=== PATIENT | male | born 1955 | race Caucasian/White ===

== ENCOUNTER 2020-06-10 23:34 | Inpatient (IN) | payer BC ==
[~2020-06-10] VITALS: Ht 198.1 cm; Wt 110.6 kg
[2020-06-11] VITALS (13 sets, daily range): BP systolic 93–134; BP diastolic 56–91
[2020-06-11] MEDS: IV NORMAL SALINE 1000ML BAG 1,000 ML IV SCH ×3 (04:00→15:30)
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
[2020-06-11 04:48] LABS: BILIRUBIN,URINE SMALL (NEG); CLARITY,URINE TURBID; NITRITE,URINE NEGATIVE (NEG); PH,URINE 8.5 (<5.0-8.0); PROTEIN,URINE >=300 mg/dL (NEG-TRACE); UROBILINOGEN,URINE 0.2 mg/dL (0.2 mg/dL)
[2020-06-11 04:49] LABS: COLOR,URINE BROWN
[2020-06-11 04:52] LABS: BACTERIA,URINE MANY /HPF (0-FEW); WBC,URINE TNTC /HPF (0-4)
[2020-06-11] MEDS ORDERED: LEVO175T2 PO (04:57)
[2020-06-11 05:25] LABS: BASO % 0 % (0-3); EOS % 0 % (0-3); HEMATOCRIT 35.9 % (39.0-53.0); HEMOGLOBIN 11.8 g/dL (13.0-17.5); LYMPH # 1.3 x10^3/uL (1.0-4.8); LYMPH % 11 % (24-48); MEAN CORPUSCULAR HEMOGLOBIN 39 pg (25-35); MEAN CORPUSCULAR HGB CONC 33 g/dL (31-37); MEAN CORPUSCULAR VOLUME 117 fL (79-100); MONO # 0.4 x10^3/uL (0.0-1.1); MONO % 4 % (0-9); NEUT # 10.1 x10^3/uL (1.8-7.7); NEUT % 85 % (31-73); PLATELET COUNT 318 x10^3/uL (140-400); RED BLOOD COUNT 3.06 x10^6/uL (4.30-5.70); RED CELL DISTRIBUTION WIDTH 14.8 % (11.5-14.5); WHITE BLOOD COUNT 11.9 x10^3/uL (4.0-11.0)
[2020-06-11 05:39] LABS: ALBUMIN 1.8 g/dL (3.4-5.0); ALBUMIN/GLOBULIN RATIO 0.4 (1.0-1.7); CALCIUM 7.1 mg/dL (8.5-10.1); CREATININE 1.1 mg/dL (0.7-1.3); GFR 67.8; POTASSIUM 4.4 mmol/L (3.5-5.1); TOTAL BILIRUBIN 0.7 mg/dL (0.2-1.0)
[2020-06-11 06:03] LABS: PLT ESTIMATE ADEQUATE (ADEQUATE)
[2020-06-11 06:04] LABS: POLYCHROMASIA OCCASIONAL
[2020-06-11] MEDS ORDERED: VITS A & D/LANOLIN TOPICAL OINTMENT 42GM TUBE. TP PRN (10:15)
--- NOTE | 2020-06-11 10:41 | NUR ---
Wound Care: Patient seen per wound care consult. Patient is covid pending, results should be in tomorrow. Wound care viewed pictures in chart and spoke with RN. Recommendations at this time to apply A&D ointment BID to entire wounds. Wound care will order a sand bed today. RN agreeable to order ointment and POC. Will follow up with patient tomorrow 06/12/20.
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
[2020-06-11] MEDS: MEROPENEM 500 MG in IV NORMAL SALINE 50ML 50 ML IV SCH ×2 (12:05→17:56)
--- NOTE | 2020-06-11 12:23 | HP ---
ADMIT DATE: 06/11/2020 CHIEF COMPLAINT: Wounds, failure to thrive, maggots, penile wounds, penile maggots. HISTORY OF PRESENT ILLNESS: The patient is a pleasant elderly male who apparently lives with his sister, but I am not clear of the situation and he has a lot of wounds. He was brought in by ambulance. He has got maggots. We even found some maggots on his penis. I discussed the case with ER physician. We have admitted him. We are going to consider long-term care placement if necessary. PAST MEDICAL HISTORY: Probable early failure to thrive, hypothyroidism. ALLERGIES: None. FAMILY HISTORY: Hypothyroidism. SOCIAL HISTORY: I believe he is retired. He does not drink, smoke or take drugs. He apparently lives with his sister. MEDICATIONS: Reviewed, please refer to the MRAD. REVIEW OF SYSTEMS: Unable to obtain. The patient is too weak, frail and really does not talk much. PHYSICAL EXAMINATION: VITALS: Within normal limits and are stable. GENERAL: He is frail, weak and does not talk. HEENT: Normal cephalic atraumatic, external auditory canals are patent EYES: Extraocular muscles are intact, pupils are equally round and reactive to light and accommodation MUSCULOSKELETAL: Well developed, well nourished, good range of motion ENDOCRINE: No thyromegaly was palpated LYMPHATICS: No cervical chain or axillary nodes were noted HEMATOPOIETIC: No bruising NECK: Supple, no JVD, no thyromegaly was noted. LUNGS: Clear to auscultation in all lung ortiz without rhonchi or wheezing. HEART: RRR, S1, S2 present. Peripheral pulses intact, no obvious murmurs were noted. ABDOMEN: Soft, nontender. Positive bowel sounds no organomegaly, normal bowel sounds. EXTREMITIES: Without any cyanosis, clubbing, or edema. Pedal pulses intact, Homans sign is negative. NEUROLOGIC: He does not talk. He is not moving a whole lot right now. PSYCHIATRIC: He appears depressed. SKIN: He has numerous wounds. Please see the pictures. VASCULAR: Good capillary refill, neurovascular bundle appears to be intact. GENITOURINARY: He had some penile maggots, those have been removed. He also has some discharge from the penis. ASSESSMENT AND PLAN: Failure to thrive, wounds and maggots. The patient has been admitted. We are doing aggressive wound care. I consult social work coordinator for possible long-term care. We will try to get his home meds going. DVT prophylaxis. Full code. PROGNOSIS: Guarded, correction. LISA NG DO DR: VICKI/analisa JOB#: [id number] / [id number]
[2020-06-11] MEDS: MORPHINE SULFATE 2 MG/ML VIAL. IV PRN ×4 (12:38→22:09)
--- NOTE | 2020-06-11 12:52 | CONS ---
DATE OF CONSULTATION: 06/11/2020 REFERRING PHYSICIAN: Dr. Rollins. REASON FOR CONSULTATION: Sepsis, Wounds, maggots, penile wounds, penile maggots. HISTORY OF PRESENT ILLNESS: The patient is a pleasant elderly male who apparently lives with his sister, but I am not clear of the situation and he has a lot of wounds. He was brought in by ambulance. He has got maggots. We even found some maggots on his penis. I discussed the case with ER physician. We have admitted him. We are going to consider long-term care placement if necessary. HISTORY OF PRESENT ILLNESS: A 64-year-old male, not a good historian currently admitted to ICU from [facility] where he was first brought in by EMS per chart review for altered mental status,failure to thrive. The patient lives with his sister. EMS found him sitting in the chair, with the fecal and urinary incontinence. The patient's temperature here at [facility] was 94*F with blood pressure of 96/74, leukocytosis. Creatinine of 1.1, albumin of 1.6. UA showed large leukocyte esterase, moderate blood, wbc's too numerous to count. Blood culture from [facility] reported positive for gram-negative bacteremia. ID and JOHANN is pending at this time. The patient was found to have multiple wounds. Wound pictures noted with maggots including penile wound with maggots. shared services and outsourcing manager has been contacted for further evaluation and treatment. The patient is currently on no antibiotics. ID consult has been requested for antibiotic management. PAST MEDICAL HISTORY: Hypothyroidism. Failure to thrive. Other medical condition, unknown. REVIEW OF SYSTEMS: Limited, but the patient denies any fevers, chills, nausea, vomiting, diarrhea, sore throat, difficulty swallowing, or symptoms. Unable to tell me how long he has had wounds. Denied any urinary symptoms prior to admission. Denied being on any antibiotics, but information is limited as the patient is not able to answer all the questions, somewhat hard of hearing. CURRENT MEDICATION: Morphine, vitamin A and D ointment, sodium chloride. ALLERGIES: No known drug allergies. SOCIAL HISTORY: Denies smoking, ETOH or illicit drug use. Lives with his sister. Has been unemployed for almost 19 years. PHYSICAL EXAMINATION: VITAL SIGNS: Temperature 94, pulse 82, respiratory rate 23, blood pressure 113/76, oxygen saturation 97% on room air. GENERAL: Alert, awake male, pleasant, in no acute distress. Able to answer some questions, asking for water. HEENT: Normocephalic, atraumatic, anicteric. No thrush. Oral mucosa moist. No oropharyngeal exudate. NECK: Supple, no JVD. LUNGS: Decreased breath sounds at the bases, otherwise no wheezing. No accessory muscle use. HEART: S1, S2. ABDOMEN: Soft, nontender, nondistended. EXTREMITIES: No edema or cyanosis. DERMATOLOGIC: No generalized rash. Multiple wounds. Wound pictures and descriptions noted with maggots noted including both lower extremities, buttocks, penile area. GENITOURINARY: Díaz in place. CENTRAL NERVOUS SYSTEM: Alert and awake. PSYCHIATRIC: Calm and cooperative. LABORATORY DATA: WBC 11.9, hemoglobin 11.8, hematocrit 35.9, platelets 318. Sodium 137, potassium 4.4, chloride 103, bicarbonate 14, BUN 43, creatinine 1.1, glucose 95, calcium 7.1, AST 23, ALT 10, alkaline phosphatase 153, total protein 6.0, albumin 1.8. UA: Large leukocyte esterase, wbc's too numerous to count. MICRO: Blood culture, gram-negative whit from [facility]. IMAGING: None here. IMPRESSION: 1. Severe sepsis from gram-negative bacteremia. 2. Gram-negative bacteremia. 3. Urinary tract infection. 4. Multiple wounds with maggots. 5. Penile ulcer with maggots 6. Hypothyroidism. 7. Anemia. 8. Severe protein-calorie malnutrition. RECOMMENDATIONS: 1. Start meropenem. 2. Repeat blood cultures in a.m. 3. Wound team has been consulted 4. Follow up gram-negative whit, ID and JOHANN from [facility]. 5. Continue wound care as directed. 6. Continue supportive care. 7. shared services and outsourcing manager has been contacted Discussed with RN Thank you for consulting Infectious Disease to participate in this patient's care. If you have any questions, do not hesitate to contact me. CCT time spent 40 minutes. REYNALDO BOLIVAR MD DR: ADRIAN/analisa JOB#: [id number] / [id number] TANNER
[2020-06-11] MEDS: oxyCODONE/APAP 7.5/325 1 TAB TABLET PO PRN (17:54)
[2020-06-12] MEDS: MEROPENEM 500 MG in IV NORMAL SALINE 50ML 50 ML IV SCH ×5 (00:01→23:10)
[2020-06-12] MEDS: IV NORMAL SALINE 1000ML BAG 1,000 ML IV SCH ×6 (00:01→23:10)
--- NOTE | 2020-06-12 02:24 | NUR ---
Patient more alert and orientated x3, requesting a snack. When talking to patient about his living situation, patient stated "i live with my sister", asked patient how he ambulates, patient stated "i don't walk, i just sit there" When asking patient how he uses the bathroom, patient states "i just go", nurse asked patient if anyone ever helps him get cleaned up, he stated "no, my sister doesn't help me with that". patient ate two ice creams, and drank one soda. Call light in reach, Will continue to monitor patient.
[2020-06-12] MEDS: MORPHINE SULFATE 2 MG/ML VIAL. IV PRN ×8 (02:48→23:10)
[2020-06-12 03:19] VITALS: BP 113/86
[2020-06-12 04:40] LABS: BASO % 0 % (0-3); EOS % 0 % (0-3); HEMATOCRIT 33.5 % (39.0-53.0); HEMOGLOBIN 11.2 g/dL (13.0-17.5); LYMPH # 1.6 x10^3/uL (1.0-4.8); LYMPH % 18 % (24-48); MEAN CORPUSCULAR HEMOGLOBIN 40 pg (25-35); MEAN CORPUSCULAR HGB CONC 34 g/dL (31-37); MEAN CORPUSCULAR VOLUME 119 fL (79-100); MONO # 0.4 x10^3/uL (0.0-1.1); MONO % 4 % (0-9); NEUT % 78 % (31-73); PLATELET COUNT 254 x10^3/uL (140-400); RED BLOOD COUNT 2.81 x10^6/uL (4.30-5.70); RED CELL DISTRIBUTION WIDTH 15.1 % (11.5-14.5)
[2020-06-12 05:39] LABS: CHOLESTEROL/HDL RATIO 2.7
[2020-06-12 07:00] VITALS: BP 138/90
--- NOTE | 2020-06-12 08:14 | PDOC ---
Infectious Disease Note Subjective: Subjective Patient transferred out of ICU Currently eating breakfast States feels better Vital Signs: Vital Signs Vital Signs Date Time Temp Pulse Resp B/P (MAP) Pulse Ox O2 Delivery O2 Flow Rate FiO2 06/12/20 05:37 20 99 Room Air 06/12/20 03:19 97.8 68 113/86 (95) 97.8 Physical Exam: PHYSICAL EXAM GENERAL: Alert, awake male, pleasant, in no acute distress. Able to answer some questions, asking for water. HEENT: Normocephalic, atraumatic, anicteric. No thrush. Oral mucosa moist. No oropharyngeal exudate. NECK: Supple, no JVD. LUNGS: Decreased breath sounds at the bases, otherwise no wheezing. No accessory muscle use. HEART: S1, S2. ABDOMEN: Soft, nontender, nondistended. EXTREMITIES: Positive for edema, no cyanosis. Yeast present DERMATOLOGIC: No generalized rash. Hyperpigmentation both lower extremity multiple wounds. Wound pictures and descriptions noted with maggots noted including both lower extremities, buttocks, penile area. GENITOURINARY: Díaz in place. CENTRAL NERVOUS SYSTEM: Alert and awake. PSYCHIATRIC: Calm and cooperative. Medications: Inpatient Meds: Current Medications Medications (Trade) Dose Ordered Sig/Rachel Start Time Stop Time Status Last Admin Dose Admin Meropenem 500 mg/ Sodium Chloride 50 ml @ 100 mls/hr Q6HRS 06/11/20 12:30 06/12/20 06:06 100 MLS/HR Morphine Sulfate (Morphine Sulfate) 2 mg PRN Q2HR PRN 06/11/20 17:15 06/12/20 05:07 2 MG Oxycodone/ Acetaminophen (Percocet 7.5/ 325) 1 tab PRN Q6HRS PRN 06/11/20 17:15 06/11/20 17:54 1 TAB Sodium Chloride 1,000 ml @ 200 mls/hr Q5H 06/11/20 04:15 06/12/20 05:43 200 MLS/HR Vitamin A/Vitamin D (Vitamin A & D Ointment) 2 alec PRN BID PRN 06/11/20 10:15 06/11/20 16:17 2 ALEC Labs: Lab Laboratory Tests Test 06/12/20 03:20 White Blood Count 9.0 x10^3/uL (4.0-11.0) Red Blood Count 2.81 x10^6/uL (4.30-5.70) Hemoglobin 11.2 g/dL (13.0-17.5) Hematocrit 33.5 % (39.0-53.0) Mean Corpuscular Volume 119 fL (79-100) Mean Corpuscular Hemoglobin 40 pg (25-35) Mean Corpuscular Hemoglobin Concent 34 g/dL (31-37) Red Cell Distribution Width 15.1 % (11.5-14.5) Platelet Count 254 x10^3/uL (140-400) Neutrophils (%) (Auto) 78 % (31-73) Lymphocytes (%) (Auto) 18 % (24-48) Monocytes (%) (Auto) 4 % (0-9) Eosinophils (%) (Auto) 0 % (0-3) Basophils (%) (Auto) 0 % (0-3) Neutrophils # (Auto) 7.0 x10^3/uL (1.8-7.7) Lymphocytes # (Auto) 1.6 x10^3/uL (1.0-4.8) Monocytes # (Auto) 0.4 x10^3/uL (0.0-1.1) Eosinophils # (Auto) 0.0 x10^3/uL (0.0-0.7) Basophils # (Auto) 0.0 x10^3/uL (0.0-0.2) Magnesium Level 2.0 mg/dL (1.8-2.4) WE-Vub-V-Type Natriuretic Peptide 476 pg/mL (0-124) Triglycerides Level 155 mg/dL (0-150) Cholesterol Level 86 mg/dL (0-200) LDL Cholesterol, Calculated 23 mg/dL (0-100) VLDL Cholesterol, Calculated 31 mg/dL (0-40) Non-HDL Cholesterol Calculated 54 mg/dL (0-129) HDL Cholesterol 32 mg/dL (40-60) Cholesterol/HDL Ratio 2.7 Micro Gram-negative bacteremia ID JOHANN pending Objective: Assessment: 1. Severe sepsis from gram-negative bacteremia. Improving 2. Gram-negative bacteremia. 3. Urinary tract infection. 4. Multiple wounds with maggots. 5. Penile ulcer with maggots 6. Hypothyroidism. 7. Anemia. 8. Severe protein-calorie malnutrition. 9. Yeast in groin Plan: Plan of Care Continue Merrem .Micafungin Follow-up repeat blood cultures here Wound care as directed Follow up gram-negative whit, ID and JOHANN from [facility]. Continue supportive care. Discussed with nursing staff REYNALDO BOLIVAR MD Jun 12, 2020 08:13
--- NOTE | 2020-06-12 08:33 | PDOC ---
[employer] PROGRESS NOTE Date of Service DOS: DATE: 06/12/20 TIME: 08:25 Chief Complaint Chief Complaint Severe sepsis from gram-negative bacteremia Urinary tract infection Multiple wounds with maggots Penile ulcer with maggots Hypothyroidism Anemia PAD Severe protein-calorie malnutrition History of Present Illness History of Present Illness 06/12/2020 Patient seen and examined Laying in bed, NAD Purulent discharge from penile ulcer Discussed with RN Chart reviewed Vitals/I&O Vitals/I&O: Vital Signs Date Time Temp Pulse Resp B/P (MAP) Pulse Ox O2 Delivery O2 Flow Rate FiO2 06/12/20 08:16 99 Room Air 06/12/20 05:37 20 06/12/20 03:19 97.8 68 113/86 (95) 97.8 I & O 06/11/20 06/11/20 06/12/20 15:00 23:00 07:00 Intake Total 0 ml Output Total 85 ml 100 ml 700 ml Balance -85 ml -100 ml -700 ml Physical Exam Physical Exam: GENERAL: Alert, awake male, pleasant, in no acute distress. Able to answer some questions. HEENT: Normocephalic, atraumatic, anicteric. No thrush. Oral mucosa moist. No oropharyngeal exudate. NECK: Supple, no JVD. LUNGS: Decreased breath sounds at the bases, otherwise no wheezing. No accessory muscle use. HEART: S1, S2. ABDOMEN: Soft, nontender, nondistended. EXTREMITIES: No edema or cyanosis. DERMATOLOGIC: No generalized rash. Multiple wounds. Wound pictures and descriptions noted with maggots noted including both lower extremities, buttocks, penile area. GENITOURINARY: Díaz in place. CENTRAL NERVOUS SYSTEM: Alert and awake. PSYCHIATRIC: Calm and cooperative. General: Alert, Cooperative, No acute distress Heart: Regular rate, Normal S1, Normal S2 Lungs: Other (Decreased breath sounds at bases) Abdomen: Soft, No tenderness Extremities: No clubbing Skin: Other (LE PAD and chronic venous insufficiency, edema B/L) Labs Labs: Laboratory Tests Test 06/12/20 03:20 White Blood Count 9.0 x10^3/uL (4.0-11.0) Red Blood Count 2.81 x10^6/uL (4.30-5.70) Hemoglobin 11.2 g/dL (13.0-17.5) Hematocrit 33.5 % (39.0-53.0) Mean Corpuscular Volume 119 fL (79-100) Mean Corpuscular Hemoglobin 40 pg (25-35) Mean Corpuscular Hemoglobin Concent 34 g/dL (31-37) Red Cell Distribution Width 15.1 % (11.5-14.5) Platelet Count 254 x10^3/uL (140-400) Neutrophils (%) (Auto) 78 % (31-73) Lymphocytes (%) (Auto) 18 % (24-48) Monocytes (%) (Auto) 4 % (0-9) Eosinophils (%) (Auto) 0 % (0-3) Basophils (%) (Auto) 0 % (0-3) Neutrophils # (Auto) 7.0 x10^3/uL (1.8-7.7) Lymphocytes # (Auto) 1.6 x10^3/uL (1.0-4.8) Monocytes # (Auto) 0.4 x10^3/uL (0.0-1.1) Eosinophils # (Auto) 0.0 x10^3/uL (0.0-0.7) Basophils # (Auto) 0.0 x10^3/uL (0.0-0.2) Magnesium Level 2.0 mg/dL (1.8-2.4) OJ-Sfp-R-Type Natriuretic Peptide 476 pg/mL (0-124) Triglycerides Level 155 mg/dL (0-150) Cholesterol Level 86 mg/dL (0-200) LDL Cholesterol, Calculated 23 mg/dL (0-100) VLDL Cholesterol, Calculated 31 mg/dL (0-40) Non-HDL Cholesterol Calculated 54 mg/dL (0-129) HDL Cholesterol 32 mg/dL (40-60) Cholesterol/HDL Ratio 2.7 Review of Systems Review of Systems: Pertinent as per HPI, otherwise 10 point review of systems is negative. Assessment and Plan Assessmemt and Plan ASSESSMENT Severe sepsis from gram-negative bacteremia Urinary tract infection Multiple wounds with maggots Penile ulcer with maggots Hypothyroidism Anemia PAD Severe protein-calorie malnutrition PLAN Continue current care Cardiac monitoring Wound care Antibiotics per infectious disease DVT prophylaxis Full code Discharge disposition pending Comment Review of Relevant I have reviewed the following items daisy (where applicable) has been applied. Medications: Current Medications Medications (Trade) Dose Ordered Sig/Rachel Route PRN Reason Start Time Stop Time Status Last Admin Dose Admin Vitamin A/Vitamin D (Vitamin A & D Ointment) 2 alec PRN BID PRN TP SKIN PROTECTION 06/11/20 10:15 06/11/20 16:17 Meropenem 500 mg/ Sodium Chloride 50 ml @ 100 mls/hr Q6HRS IV 06/11/20 12:30 06/12/20 06:06 Morphine Sulfate (Morphine Sulfate) 2 mg PRN Q2HR PRN IV PAIN 06/11/20 17:15 06/12/20 08:16 Oxycodone/ Acetaminophen (Percocet 7.5/ 325) 1 tab PRN Q6HRS PRN PO PAIN 06/11/20 17:15 06/11/20 17:54 Justicifation of Admission Dx: Justifications for Admission: Justification of Admission Dx: N/A LISA NG III DO Jun 12, 2020 08:33
[2020-06-12] MEDS: MICAFUNGIN 100 MG in IV DEXTROSE 5% 100ML 100 ML IV SCH (09:24)
--- NOTE | 2020-06-12 10:53 | NUR ---
SW following. Discussed with RN, pt transferred from ICU, wound care not wanting to see pt until his COVID-19 result comes back from [facility] - apparently pt was tested over there for suspected COVID-19. SW will continue to follow.
[2020-06-12 11:00] VITALS: BP 129/90
--- NOTE | 2020-06-12 11:01 | NUR ---
This nurse called [facility]'s medical records to verify patient covid 19 test status; Stephani reported that patient's covid test was cancelled and their is no indication that a test was complete. Primary contacted for further orders/recommendations.
[2020-06-12 15:00] VITALS: BP 130/80
--- NOTE | 2020-06-12 15:53 | PDOC2 ---
Chief Complaint: Chief Complaint: Multiple pressure wounds to bilateral lower extremities, back, left heel, and left hip Vital Signs: Vital Signs: Vital Signs Date Time Temp Pulse Resp B/P (MAP) Pulse Ox O2 Delivery O2 Flow Rate FiO2 06/11/20 07:34 95 24 110/91 (97) 96 Room Air 06/11/20 08:00 98.3 98.3 Vital Signs Date Time Temp Pulse Resp B/P (MAP) Pulse Ox O2 Delivery O2 Flow Rate FiO2 06/12/20 15:00 97.6 69 16 130/80 (97) 90 Room Air 97.6 Allergies: Allergies: Allergies Coded Allergies Type Severity Reaction Last Updated Verified No Known Drug Allergies 06/11/20 No Medications: Home Meds Reported Medications Levothyroxine Sodium (SYNTHROID) 175 Mcg Tablet, 1 TAB PO DAILY for hypothyroid, #30 TAB 5 Refills 06/11/20 PCP: PCP: Dr. Rollins Pain: Pain Location: Other (Patient complains of general pain with change of positio ns.) Date of Onset Patient presented to [facility] for admission on 06/11. Patient presented with multiple pressure wounds to his back bilateral lower extremities and left hip. Patient states that he lost his dog who was his mechanical handyman approximately 3 weeks ago and refused to get off the couch following his . Patient states that prior to this point he was ambulating, however required help from his sister. Chart review reveals patient brought to the emergency room covered in feces and had maggots in his wounds along with his penis. Patient sister who is his primary supervisor mill reported patient was doing fine until the day before admission. Adult Protective Services has been notified. PMH Hypothyroidism. Failure to thrive. Peripheral artery disease. Other medical conditions, unknown. [facility] Patient lives with his sister prior to admission. Patient denies tobacco use, illicit drug use or alcohol use. General: No: Chills, Fatigue, Appetite Respiratory: No: Cough, Orthopnea, Shortness of breath Cardiovascular: No Chest Pain, No Orthopnea, No Edema Gastrointestinal: No Nausea, No Vomiting, No Diarrhea, No Constipation Genitourinary: YES Other (Patient with Díaz catheter. Patient reports pain in penis.) Skin: Yes Dry Skin, Yes Hair Changes, Yes Other (Patient states that he began to notice discoloration of his lower extremities around 1992. Patient sister reports that he has been diagnosed with peripheral artery disease.) Neurological: No Behavorial Changes, No Confusion, No Dizziness, No Headaches Psychological: YES: Depression; No: Anxiety, Suicidal ideation Physical Exam Patient awake and alert 64-year-old male in no apparent distress. Vital signs are stable. Patient is afebrile at this time. Patient pleasant in conversation, appears to have some mental delays. Tardive dyskinesias present. Respirations are even and unlabored. Patient is on room air not requiring montague pplemental oxygen. Abdomen is soft, nondistended and nontender to palpation. Patient with lipodermatosclerosis to bilateral lower extremities. Toenails are thick and yellow and growing into plantar foot as they are overgrown. The left heel presents with a 7.8 x 7.2 x 0.2 cm blood filled bulla. Surrounding tissues without erythema or edema. The right hip presents with a 24 x 12.7 cm open ulceration. Wound bed is 100% slough/eschar with some granulated islands throughout. Surrounding tissue is maroon to purple, however is blanchable at this time. The right lower back presents with a 5.8 x 9.8 x 0.2 cm open ulceration. Wound bed is 90% slough with granulated islands throughout. The right buttock presents with a 4.4 x 7.2 x 0.1 cm open ulceration. Wound bed is 100% slough. Right back presents with a 7 x 4.4 x 0.1 cm open ulceration.Wound bed is 90% slough with 10% granulated islands throughout. The right second toe presents with a fluid-filled blister which measures 0.9 x 0.5 cm. There is no surrounding erythema or edema. The left thigh presents with a 8 x 6 x 0.1 cm open ulceration. Wound bed is 10% slough, 90% pink smooth tissue. The right posterior thigh presents with a 19 x 11.5 x 0.1 cm open ulceration. Wound bed is 90% pink smooth with 10% slough. The left hip presents with a 2.2 x 1.6 x 0.1 cm open ulceration. Wound bed is 50% slough, 50% granulation and islands throughout. The lower mid back presents with a 10 x 2.4 x 0.1 cm open ulceration. Wound bed is 90% granulation, 10% slough the left lower leg presents with a 2 x 1 x 0.2 cm open ulceration. Wound bed is 100% granulation. The entire lower back, bilateral buttocks, bilateral thighs and left side of the patient present with a maroon to purple discoloration which is blanchable at this time A/P 1) failure to thrive 2) sepsis -Infectious disease following for antibiotic therapy 3) DTI to left foot 4) stage II pressure ulcer to the right second toe 5) stage III pressure ulcers to the right hip right lower back right back left thigh right posterior thigh left hip lower mid back and left lower leg 6) unstageable pressure ulcers to the right hip and right buttock 7) Peripheral artery disease without open ulcerations at this time Due to the nature of the periwound around the wounds requiring debridement, the right hip and right buttock, we will initiate A and D ointment and plan to debride at bedside on 06/14. Pt will require premedication prior to debridement. Patient is on a low air loss mattress. Nursing staff on every 2 hour turning schedule. Dietary is consulting to ensure patient with adequate protein intake for optimal wound healing. Consult podiatry for toenail trimming. Adult protective services has been notified by [facility] JACQUE. ANAI HERNANDEZ APRN Jun 12, 2020 15:53
[2020-06-12] MEDS: DAPTOmycin (GENERIC) IVPB 500 MG in IV NORMAL SALINE 50ML 50 ML IV SCH (16:12)
--- NOTE | 2020-06-12 16:40 | NUR ---
Wound Care Wound care consult for multiple wounds to back, buttocks, hips, legs and feet. Pt skin is excoriated and has multiple pressure ulcers stage II and III. Pt has unstageable ulcers to right hip and right lower back. Pt also has large blood filled blister to left heel. SONIDO Mccann will plan bedside debridement on Wednesday with the hopes the periwound skin will heal enough to cover wounds with dressings. Cleansed areas and pictured and measured. Applied A&D ointment to all wounds. Recommend pt to turn every 2 hours. Pt on clinitron sand bed. WC will continue to follow.
[2020-06-12 19:00] VITALS: BP 130/93
[2020-06-12] MEDS: LACTOBACILLUS RHAMNOSUS GG 1 CAPSULE. PO SCH (21:09)
[2020-06-12 22:55] VITALS: BP 131/97
[2020-06-12] MEDS: oxyCODONE/APAP 7.5/325 1 TAB TABLET PO PRN (23:04)
[2020-06-13] MEDS: MORPHINE SULFATE 2 MG/ML VIAL. IV PRN ×5 (02:34→20:39)
--- NOTE | 2020-06-13 03:02 | NUR ---
No urine noted from bearden catheter during the noc. Continue to see purulent drainage from penis. Pt with slight touch would complain of pain. Bladder scanned pt and noted 600-999ml in bladder. After giving pain medication placed a new catheter. 16f bearden pt tolerated with complaints of discomfort. Immediately noted brown purulent drainage in tubing and catheter bag started to fill with brownish purulent urine noted. Pt states starting to feel better. Will continue to monitor.
[2020-06-13 03:06] VITALS: BP 144/74
[2020-06-13] MEDS: IV NORMAL SALINE 1000ML BAG 1,000 ML IV SCH ×4 (03:36→19:38)
[2020-06-13] MEDS: MEROPENEM 500 MG in IV NORMAL SALINE 50ML 50 ML IV SCH ×4 (05:30→23:41)
[2020-06-13 07:00] VITALS: BP 108/69
[2020-06-13 07:50] LABS: BASO % 0 % (0-3); EOS % 0 % (0-3); HEMATOCRIT 33.7 % (39.0-53.0); HEMOGLOBIN 11.3 g/dL (13.0-17.5); LYMPH # 1.3 x10^3/uL (1.0-4.8); LYMPH % 15 % (24-48); MEAN CORPUSCULAR HEMOGLOBIN 39 pg (25-35); MEAN CORPUSCULAR HGB CONC 34 g/dL (31-37); MEAN CORPUSCULAR VOLUME 117 fL (79-100); MONO # 0.2 x10^3/uL (0.0-1.1); MONO % 2 % (0-9); NEUT # 7.5 x10^3/uL (1.8-7.7); NEUT % 83 % (31-73); PLATELET COUNT 208 x10^3/uL (140-400); RED BLOOD COUNT 2.87 x10^6/uL (4.30-5.70)
--- NOTE | 2020-06-13 08:07 | PDOC ---
Infectious Disease Note Subjective: Subjective Currently eating breakfast States feels better Vital Signs: Vital Signs Vital Signs Date Time Temp Pulse Resp B/P (MAP) Pulse Ox O2 Delivery O2 Flow Rate FiO2 06/13/20 03:06 98.0 83 22 144/74 (97) 97 Room Air 98.0 Physical Exam: PHYSICAL EXAM GENERAL: Alert, awake male, pleasant, in no acute distress. Able to answer some questions, asking for water. HEENT: Normocephalic, atraumatic, anicteric. No thrush. Oral mucosa moist. No oropharyngeal exudate. NECK: Supple, no JVD. LUNGS: Decreased breath sounds at the bases, otherwise no wheezing. No accessory muscle use. HEART: S1, S2. ABDOMEN: Soft, nontender, nondistended. EXTREMITIES: Positive for edema, no cyanosis. Yeast present DERMATOLOGIC: No generalized rash. Hyperpigmentation both lower extremity multiple wounds. Wound pictures and descriptions noted with maggots noted including both lower extremities and back,, buttocks, penile area. GENITOURINARY: Díaz in place.penile abrasion noted CENTRAL NERVOUS SYSTEM: Alert and awake. PSYCHIATRIC: Calm and cooperative. Medications: Inpatient Meds: Current Medications Medications (Trade) Dose Ordered Sig/Rachel Start Time Stop Time Status Last Admin Dose Admin Daptomycin 500 mg/ Sodium Chloride 50 ml @ 100 mls/hr Q24H 06/12/20 17:00 06/12/20 16:12 100 MLS/HR Lactobacillus Rhamnosus (Culturelle) 1 cap BID 06/12/20 21:00 06/12/20 21:09 1 CAP Meropenem 500 mg/ Sodium Chloride 50 ml @ 100 mls/hr Q6HRS 06/11/20 12:30 06/13/20 05:30 100 MLS/HR Micafungin Sodium 100 mg/Dextrose 100 ml @ 100 mls/hr Q24H 06/12/20 10:00 06/12/20 09:24 100 MLS/HR Morphine Sulfate (Morphine Sulfate) 2 mg PRN Q2HR PRN 06/11/20 17:15 06/13/20 02:34 2 MG Oxycodone/ Acetaminophen (Percocet 7.5/ 325) 1 tab PRN Q6HRS PRN 06/11/20 17:15 06/12/20 23:04 1 TAB Sodium Chloride 1,000 ml @ 200 mls/hr Q5H 06/11/20 04:15 06/12/20 23:10 200 MLS/HR Vitamin A/Vitamin D (Vitamin A & D Ointment) 2 alec PRN BID PRN 06/11/20 10:15 06/11/20 16:17 2 ALEC Labs: Lab Laboratory Tests Test 06/12/20 11:25 06/13/20 06:25 SARS-CoV-2 Antigen (Rapid) Negative (NEGATIVE) White Blood Count 9.0 x10^3/uL (4.0-11.0) Red Blood Count 2.87 x10^6/uL (4.30-5.70) Hemoglobin 11.3 g/dL (13.0-17.5) Hematocrit 33.7 % (39.0-53.0) Mean Corpuscular Volume 117 fL (79-100) Mean Corpuscular Hemoglobin 39 pg (25-35) Mean Corpuscular Hemoglobin Concent 34 g/dL (31-37) Red Cell Distribution Width 14.0 % (11.5-14.5) Platelet Count 208 x10^3/uL (140-400) Neutrophils (%) (Auto) 83 % (31-73) Lymphocytes (%) (Auto) 15 % (24-48) Monocytes (%) (Auto) 2 % (0-9) Eosinophils (%) (Auto) 0 % (0-3) Basophils (%) (Auto) 0 % (0-3) Neutrophils # (Auto) 7.5 x10^3/uL (1.8-7.7) Lymphocytes # (Auto) 1.3 x10^3/uL (1.0-4.8) Monocytes # (Auto) 0.2 x10^3/uL (0.0-1.1) Eosinophils # (Auto) 0.0 x10^3/uL (0.0-0.7) Basophils # (Auto) 0.0 x10^3/uL (0.0-0.2) Micro Gram-negative bacteremia ID JOHANN pending Objective: Assessment: 1. Severe sepsis bacteremia improving 2. Polymicrobial infection, ecoli, enterococcus raffinosus,diphtheroids and staph hominis POA at osh, here repeat bc neg 3. Urinary tract infection. 4. Multiple wounds with maggots. 5. Penile ulcer with maggots 6. Hypothyroidism. 7. Anemia. 8. Severe protein-calorie malnutrition. 9. Yeast in groin Plan: Plan of Care Continue Merrem and daptomycin Continue.Micafungin Follow-up repeat blood cultures here Wound care as directed Follow up suscep for enterococcus raffinosus, Avoid picc line today, Continue supportive care. Discussed with nursing staff REYNALDO BOLIVAR MD Jun 13, 2020 08:07
[2020-06-13 08:10] LABS: CALCIUM 7.2 mg/dL (8.5-10.1); CREATININE 0.8 mg/dL (0.7-1.3); POTASSIUM 3.7 mmol/L (3.5-5.1)
[2020-06-13] MEDS: oxyCODONE/APAP 7.5/325 1 TAB TABLET PO PRN ×3 (08:39→20:39)
[2020-06-13] MEDS: LACTOBACILLUS RHAMNOSUS GG 1 CAPSULE. PO SCH ×2 (08:39→19:37)
[2020-06-13] MEDS: MICAFUNGIN 100 MG in IV DEXTROSE 5% 100ML 100 ML IV SCH (08:39)
[2020-06-13 11:00] VITALS: BP 105/75
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
--- NOTE | 2020-06-13 11:40 | PDOC ---
[employer] PROGRESS NOTE Date of Service DOS: DATE: 06/13/20 TIME: 11:34 Chief Complaint Chief Complaint Severe sepsis from gram-negative bacteremia Urinary tract infection Multiple wounds with maggots Penile ulcer with maggots Hypothyroidism Anemia PAD Severe protein-calorie malnutrition History of Present Illness History of Present Illness 06/13/2020 Patient seen and examined Laying in bed, NAD Purulent discharge from penile ulcer, improved Discussed with RN Chart reviewed 06/12/2020 Patient seen and examined Laying in bed, NAD Purulent discharge from penile ulcer Discussed with RN Chart reviewed Vitals/I&O Vitals/I&O: Vital Signs Date Time Temp Pulse Resp B/P (MAP) Pulse Ox O2 Delivery O2 Flow Rate FiO2 06/13/20 11:00 97.9 75 20 105/75 (85) 94 Room Air 97.9 I & O 06/12/20 06/12/20 06/13/20 15:00 23:00 07:00 Intake Total 880 ml 180 ml Output Total 50 ml 50 ml 900 ml Balance 830 ml 130 ml -900 ml Physical Exam Physical Exam: GENERAL: Alert, awake male, pleasant, in no acute distress. HEENT: Normocephalic, atraumatic, anicteric. No thrush. Oral mucosa moist. No oropharyngeal exudate. NECK: Supple, no JVD. LUNGS: Decreased breath sounds at the bases, otherwise no wheezing. No accessory muscle use. HEART: S1, S2. ABDOMEN: Soft, nontender, nondistended. EXTREMITIES: Positive for edema, no cyanosis. Yeast present DERMATOLOGIC: No generalized rash. Hyperpigmentation both lower extremity multiple wounds. Wound pictures and descriptions noted with maggots noted including both lower extremities and back,, buttocks, penile area. GENITOURINARY: Díaz in place.penile abrasion noted CENTRAL NERVOUS SYSTEM: Alert and awake. PSYCHIATRIC: Calm and cooperative. General: Alert, Cooperative, No acute distress Heart: Regular rate, Normal S1, Normal S2 Lungs: Other (Decreased breath sounds at bases) Abdomen: Soft, No tenderness Extremities: No clubbing Skin: Other (LE PAD and chronic venous insufficiency, edema B/L, purulent penile ulcer) Labs Labs: Laboratory Tests Test 06/13/20 06:25 White Blood Count 9.0 x10^3/uL (4.0-11.0) Red Blood Count 2.87 x10^6/uL (4.30-5.70) Hemoglobin 11.3 g/dL (13.0-17.5) Hematocrit 33.7 % (39.0-53.0) Mean Corpuscular Volume 117 fL (79-100) Mean Corpuscular Hemoglobin 39 pg (25-35) Mean Corpuscular Hemoglobin Concent 34 g/dL (31-37) Red Cell Distribution Width 14.0 % (11.5-14.5) Platelet Count 208 x10^3/uL (140-400) Neutrophils (%) (Auto) 83 % (31-73) Lymphocytes (%) (Auto) 15 % (24-48) Monocytes (%) (Auto) 2 % (0-9) Eosinophils (%) (Auto) 0 % (0-3) Basophils (%) (Auto) 0 % (0-3) Neutrophils # (Auto) 7.5 x10^3/uL (1.8-7.7) Lymphocytes # (Auto) 1.3 x10^3/uL (1.0-4.8) Monocytes # (Auto) 0.2 x10^3/uL (0.0-1.1) Eosinophils # (Auto) 0.0 x10^3/uL (0.0-0.7) Basophils # (Auto) 0.0 x10^3/uL (0.0-0.2) Sodium Level 134 mmol/L (136-145) Potassium Level 3.7 mmol/L (3.5-5.1) Chloride Level 102 mmol/L (98-107) Carbon Dioxide Level 21 mmol/L (21-32) Anion Gap 11 (6-14) Blood Urea Nitrogen 21 mg/dL (8-26) Creatinine 0.8 mg/dL (0.7-1.3) Estimated GFR (Cockcroft-Gault) 98.0 Glucose Level 69 mg/dL (70-99) Calcium Level 7.2 mg/dL (8.5-10.1) Review of Systems Review of Systems: Pertinent as per HPI, otherwise 10 point review of systems is negative. Assessment and Plan Assessmemt and Plan ASSESSMENT Severe sepsis from gram-negative bacteremia Urinary tract infection Multiple wounds with maggots Penile ulcer with maggots Hypothyroidism Anemia PAD Severe protein-calorie malnutrition PLAN Continue current care Cardiac monitoring IV antibiotics IV anti-fungal Wound care Appreciate subspecialist input PT/OT Trend labs DVT prophylaxis Full code Discharge disposition pending Comment Review of Relevant I have reviewed the following items daisy (where applicable) has been applied. Medications: Current Medications Medications (Trade) Dose Ordered Sig/Rachel Route PRN Reason Start Time Stop Time Status Last Admin Dose Admin Lactobacillus Rhamnosus (Culturelle) 1 cap BID PO 06/12/20 21:00 06/13/20 08:39 Daptomycin 500 mg/ Sodium Chloride 50 ml @ 100 mls/hr Q24H IV 06/12/20 17:00 06/12/20 16:12 Justicifation of Admission Dx: Justifications for Admission: Justification of Admission Dx: N/A LISA NG III DO Jun 13, 2020 11:40
[2020-06-13 15:00] VITALS: BP 123/76
[2020-06-13] MEDS: DAPTOmycin (GENERIC) IVPB 500 MG in IV NORMAL SALINE 50ML 50 ML IV SCH (18:08)
--- NOTE | 2020-06-13 18:45 | NUR ---
MD Ayo in regards to Díaz catheter. Catheter was replaced on 8 freight receiver. Patient only had 200cc output, bladder scan done showing over 800cc in bladder. Current Díaz flushed and repositioned with no return of urine. Díaz removed and patient straight cath with 1000 cc drained. Orders to replace coude Díaz catheter. Will replacing another 150cc drained from catheter.
[2020-06-13 19:00] VITALS: BP 121/62
[2020-06-13 23:00] VITALS: BP 124/70
[2020-06-14 03:00] VITALS: BP 114/70
[2020-06-14 05:02] LABS: BASO % 1 % (0-3); EOS % 0 % (0-3); HEMATOCRIT 30.6 % (39.0-53.0); HEMOGLOBIN 10.4 g/dL (13.0-17.5); LYMPH # 1.4 x10^3/uL (1.0-4.8); LYMPH % 24 % (24-48); MEAN CORPUSCULAR HEMOGLOBIN 40 pg (25-35); MEAN CORPUSCULAR HGB CONC 34 g/dL (31-37); MEAN CORPUSCULAR VOLUME 117 fL (79-100); MONO # 0.2 x10^3/uL (0.0-1.1); MONO % 4 % (0-9); NEUT # 4.2 x10^3/uL (1.8-7.7); NEUT % 72 % (31-73); PLATELET COUNT 175 x10^3/uL (140-400); RED BLOOD COUNT 2.61 x10^6/uL (4.30-5.70); RED CELL DISTRIBUTION WIDTH 14.2 % (11.5-14.5); WHITE BLOOD COUNT 5.9 x10^3/uL (4.0-11.0)
[2020-06-14 05:17] LABS: CALCIUM 6.6 mg/dL (8.5-10.1); CREATININE 0.9 mg/dL (0.7-1.3); GFR 85.5; POTASSIUM 3.7 mmol/L (3.5-5.1)
[2020-06-14] MEDS: MEROPENEM 500 MG in IV NORMAL SALINE 50ML 50 ML IV SCH ×4 (05:32→23:45)
[2020-06-14] MEDS: MORPHINE SULFATE 2 MG/ML VIAL. IV PRN ×2 (05:33→11:51)
[2020-06-14 07:00] VITALS: BP 97/69
--- NOTE | 2020-06-14 08:00 | PDOC ---
Infectious Disease Note Subjective: Subjective States feels better has pain in his back and knees Vital Signs: Vital Signs Vital Signs Date Time Temp Pulse Resp B/P (MAP) Pulse Ox O2 Delivery O2 Flow Rate FiO2 06/14/20 07:00 97.4 76 18 97/69 (78) 99 Room Air 97.4 Physical Exam: PHYSICAL EXAM GENERAL: Alert, awake male, pleasant, in no acute distress. HEENT: Normocephalic, atraumatic, anicteric. No thrush. Oral mucosa moist. No oropharyngeal exudate. NECK: Supple, no JVD. LUNGS: Decreased breath sounds at the bases, otherwise no wheezing. No accessory muscle use. HEART: S1, S2. ABDOMEN: Soft, nontender, nondistended. EXTREMITIES: Positive for edema, no cyanosis. Yeast present DERMATOLOGIC: No generalized rash. Hyperpigmentation both lower extremity multiple wounds. Wound pictures and descriptions noted with maggots noted including both lower extremities and back,, buttocks, penile area. GENITOURINARY: Díaz in place.penile abrasion noted CENTRAL NERVOUS SYSTEM: Alert and awake. PSYCHIATRIC: Calm and cooperative. Medications: Inpatient Meds: Current Medications Medications (Trade) Dose Ordered Sig/Rachel Start Time Stop Time Status Last Admin Dose Admin Daptomycin 500 mg/ Sodium Chloride 50 ml @ 100 mls/hr Q24H 06/12/20 17:00 06/13/20 18:08 100 MLS/HR Lactobacillus Rhamnosus (Culturelle) 1 cap BID 06/12/20 21:00 06/13/20 19:37 1 CAP Meropenem 500 mg/ Sodium Chloride 50 ml @ 100 mls/hr Q6HRS 06/11/20 12:30 06/14/20 05:32 100 MLS/HR Micafungin Sodium 100 mg/Dextrose 100 ml @ 100 mls/hr Q24H 06/12/20 10:00 06/13/20 08:39 100 MLS/HR Morphine Sulfate (Morphine Sulfate) 2 mg PRN Q2HR PRN 06/11/20 17:15 06/14/20 05:33 2 MG Oxycodone/ Acetaminophen (Percocet 7.5/ 325) 1 tab PRN Q6HRS PRN 06/11/20 17:15 06/13/20 20:39 1 TAB Sodium Chloride 1,000 ml @ 75 mls/hr [id number] 06/11/20 04:15 06/13/20 19:38 75 MLS/HR Vitamin A/Vitamin D (Vitamin A & D Ointment) 2 alec PRN BID PRN 06/11/20 10:15 06/11/20 16:17 2 ALEC Labs: Lab Laboratory Tests Test 06/14/20 04:00 White Blood Count 5.9 x10^3/uL (4.0-11.0) Red Blood Count 2.61 x10^6/uL (4.30-5.70) Hemoglobin 10.4 g/dL (13.0-17.5) Hematocrit 30.6 % (39.0-53.0) Mean Corpuscular Volume 117 fL (79-100) Mean Corpuscular Hemoglobin 40 pg (25-35) Mean Corpuscular Hemoglobin Concent 34 g/dL (31-37) Red Cell Distribution Width 14.2 % (11.5-14.5) Platelet Count 175 x10^3/uL (140-400) Neutrophils (%) (Auto) 72 % (31-73) Lymphocytes (%) (Auto) 24 % (24-48) Monocytes (%) (Auto) 4 % (0-9) Eosinophils (%) (Auto) 0 % (0-3) Basophils (%) (Auto) 1 % (0-3) Neutrophils # (Auto) 4.2 x10^3/uL (1.8-7.7) Lymphocytes # (Auto) 1.4 x10^3/uL (1.0-4.8) Monocytes # (Auto) 0.2 x10^3/uL (0.0-1.1) Eosinophils # (Auto) 0.0 x10^3/uL (0.0-0.7) Basophils # (Auto) 0.0 x10^3/uL (0.0-0.2) Sodium Level 136 mmol/L (136-145) Potassium Level 3.7 mmol/L (3.5-5.1) Chloride Level 103 mmol/L (98-107) Carbon Dioxide Level 24 mmol/L (21-32) Anion Gap 9 (6-14) Blood Urea Nitrogen 19 mg/dL (8-26) Creatinine 0.9 mg/dL (0.7-1.3) Estimated GFR (Cockcroft-Gault) 85.5 Glucose Level 78 mg/dL (70-99) Calcium Level 6.6 mg/dL (8.5-10.1) Micro Gram-negative bacteremia ID [email or web address] pending Objective: Assessment: 1. Severe sepsis polymicrobial bacteremia improving 2. Polymicrobial infection, ecoli, enterococcus raffinosus,diphtheroids and staph hominis POA at [facility], here repeat bc neg 3. Urinary tract infection.aerococcus 4. Urinary retention 5. Multiple wounds and Penile ulcer with maggots 6. Hypothyroidism. 7. Anemia. 8. Severe protein-calorie malnutrition. 9. Yeast in groin Plan: Plan of Care Continue Merrem and daptomycin Continue.Micafungin Follow-up repeat blood cultures here Wound care as directed awaiting bedside i and d today Follow up suscep for enterococcus raffinosus at osh picc line Continue supportive care. Discussed with nursing staff REYNALDO BOLIVAR MD Jun 14, 2020 08:00
--- NOTE | 2020-06-14 09:12 | RAD ---
RENAL COMPLETE BILATERAL History: Retention with catheter, maggots coming out of penis on admission Comparison: None. Findings: Multiple sonographic images of the kidneys and urinary bladder are submitted. Right kidney measured 11.3 x 4.8 x 5.1 cm. Left kidney measured 10.5 x 4.2 x 6 cm. There is no hydronephrosis of either kidney. There is distention of urinary bladder despite the presence of Díaz catheter. However urinary bladder is poorly visualized due to bowel gas. Incidental note is made of cholelithiasis. Impression: 1. There is distention of urinary bladder despite the presence of Díaz catheter. There is no hydronephrosis of either kidney. 2. Incidental note is made of cholelithiasis. Electronically signed by: Calvin Dnois MD (06/14/2020 9:09 AM) [id number]
[2020-06-14] MEDS: MICAFUNGIN 100 MG in IV DEXTROSE 5% 100ML 100 ML IV SCH (09:35)
[2020-06-14] MEDS: oxyCODONE/APAP 7.5/325 1 TAB TABLET PO PRN ×2 (09:35→20:35)
[2020-06-14] MEDS: LACTOBACILLUS RHAMNOSUS GG 1 CAPSULE. PO SCH ×2 (09:35→20:35)
--- NOTE | 2020-06-14 10:09 | NUR ---
SS following up with discharge planning. SS reviewed pt chart and discussed with pt RN. Pt is currently on room air. Pt on IV Daptomycin, Meropenem, and Micafungin. Pt getting PICC line placed today. Probable extermination supervisor IV antibiotics needed. Pt has wound care and is on sand bed. Pt has multiple wounds and it is recommended that pt be turned every two hours. Pt has bearden and getting renal ultrasound today. Pt accepted at [facility], ; fax [phone], pending insurance authorization. SS discussed with Ida from [facility] in detail. Ida reported that she is discussing with her medical imaging director. SS will continue to follow for discharge planning.
--- NOTE | 2020-06-14 10:58 | PDOC ---
[employer] PROGRESS NOTE Date of Service DOS: DATE: 06/14/20 TIME: 10:47 Chief Complaint Chief Complaint Severe sepsis polymicrobial bacteremia improving Polymicrobial infection, E. coli, Enterococcus raffinosus, Diphtheroids and Staphylococcus hominis, POA at OSH, here repeat BC NGTD Urinary tract infection, Aerococcus unrinae Urinary retention Multiple wounds with maggots Penile ulcer with maggots Hypothyroidism Anemia PAD Severe protein-calorie malnutrition Yeast in groin History of Present Illness History of Present Illness 06/14/2020 Patient seen and examined Laying in bed, NAD States he feels better Penile ulcer and wounds improving Bladder irrigation required for urinary retention, large debris and bloody urine recovered and sent to pathology Discussed with RN Chart reviewed 06/13/2020 Patient seen and examined Laying in bed, NAD Purulent discharge from penile ulcer, improved Discussed with RN Chart reviewed 06/12/2020 Patient seen and examined Laying in bed, NAD Purulent discharge from penile ulcer Discussed with RN Chart reviewed Vitals/I&O Vitals/I&O: Vital Signs Date Time Temp Pulse Resp B/P (MAP) Pulse Ox O2 Delivery O2 Flow Rate FiO2 06/14/20 08:00 Room Air 06/14/20 07:00 97.4 76 18 97/69 (78) 99 97.4 I & O 06/13/20 06/13/20 06/14/20 15:00 23:00 07:00 Intake Total 1600 ml 600 ml 1850 ml Output Total 1600 ml 500 ml Balance 1600 ml -1000 ml 1350 ml Physical Exam Physical Exam: GENERAL: Alert, awake male, pleasant, in no acute distress. HEENT: Normocephalic, atraumatic, anicteric. No thrush. Oral mucosa moist. No oropharyngeal exudate. NECK: Supple, no JVD. LUNGS: Decreased breath sounds at the bases, otherwise no wheezing. No accessory muscle use. HEART: S1, S2. ABDOMEN: Soft, nontender, nondistended. EXTREMITIES: Positive for edema, no cyanosis. Yeast present DERMATOLOGIC: No generalized rash. Hyperpigmentation both lower extremity multiple wounds. Wound pictures and descriptions noted with maggots noted including both lower extremities and back,, buttocks, penile area. GENITOURINARY: Díaz in place.penile abrasion noted CENTRAL NERVOUS SYSTEM: Alert and awake. PSYCHIATRIC: Calm and cooperative. General: Alert, Cooperative, No acute distress Heart: Regular rate, Normal S1, Normal S2 Lungs: Other (Decreased breath sounds at bases) Abdomen: Soft, No tenderness Extremities: No clubbing Skin: Other (LE PAD and chronic venous insufficiency, edema B/L, purulent penile ulcer) Labs Labs: Laboratory Tests Test 06/14/20 04:00 White Blood Count 5.9 x10^3/uL (4.0-11.0) Red Blood Count 2.61 x10^6/uL (4.30-5.70) Hemoglobin 10.4 g/dL (13.0-17.5) Hematocrit 30.6 % (39.0-53.0) Mean Corpuscular Volume 117 fL (79-100) Mean Corpuscular Hemoglobin 40 pg (25-35) Mean Corpuscular Hemoglobin Concent 34 g/dL (31-37) Red Cell Distribution Width 14.2 % (11.5-14.5) Platelet Count 175 x10^3/uL (140-400) Neutrophils (%) (Auto) 72 % (31-73) Lymphocytes (%) (Auto) 24 % (24-48) Monocytes (%) (Auto) 4 % (0-9) Eosinophils (%) (Auto) 0 % (0-3) Basophils (%) (Auto) 1 % (0-3) Neutrophils # (Auto) 4.2 x10^3/uL (1.8-7.7) Lymphocytes # (Auto) 1.4 x10^3/uL (1.0-4.8) Monocytes # (Auto) 0.2 x10^3/uL (0.0-1.1) Eosinophils # (Auto) 0.0 x10^3/uL (0.0-0.7) Basophils # (Auto) 0.0 x10^3/uL (0.0-0.2) Sodium Level 136 mmol/L (136-145) Potassium Level 3.7 mmol/L (3.5-5.1) Chloride Level 103 mmol/L (98-107) Carbon Dioxide Level 24 mmol/L (21-32) Anion Gap 9 (6-14) Blood Urea Nitrogen 19 mg/dL (8-26) Creatinine 0.9 mg/dL (0.7-1.3) Estimated GFR (Cockcroft-Gault) 85.5 Glucose Level 78 mg/dL (70-99) Calcium Level 6.6 mg/dL (8.5-10.1) Review of Systems Review of Systems: Pertinent as per HPI, otherwise 10 point review of systems is negative. Assessment and Plan Assessmemt and Plan ASSESSMENT Severe sepsis polymicrobial bacteremia improving Polymicrobial infection, E. coli, Enterococcus raffinosus, Diphtheroids and Staphylococcus hominis, POA at OSH, here repeat BC NGTD Urinary tract infection, Aerococcus unrinae Urinary retention Multiple wounds with maggots Penile ulcer with maggots Hypothyroidism Anemia PAD Severe protein-calorie malnutrition Yeast in groin PLAN Cardiac monitoring IV antibiotics per ID Wound care Follow blood culture results Trend labs Await pathology report for urine PT/OT DVT prophylaxis Appreciate subspecialist input Full code Discharge disposition pending Comment Review of Relevant I have reviewed the following items daisy (where applicable) has been applied. Justicifation of Admission Dx: Justifications for Admission: Justification of Admission Dx: N/A LISA NG III DO Jun 14, 2020 10:58
[2020-06-14 11:00] VITALS: BP 107/71
[2020-06-14] MEDS: IV NORMAL SALINE 1000ML BAG 1,000 ML IV SCH (11:51)
--- NOTE | 2020-06-14 11:58 | NUR ---
Review and agree with documentation completed by Ana Aguilar intern retail
[2020-06-14] MEDS ORDERED: LIDOCAINE WITH 8.4% SOD BICARB 3 ML DISP.SYRIN. ONE (12:48)
--- NOTE | 2020-06-14 13:32 | NUR ---
Wound Care Wound care consult for bedside debridement of right hip and lower back with Siobhan Hicks APRN. Consent obtained, topical lidocaine applied, eschar, slough and subcutaneous tissue removed with blade and forceps. Bleeding controlled with pressure. Dressed all wounds with A&D ointment. Medihoney and xeroform applied to debrided wounds. Recommend to reapply A&D ointment and xeroform BID and PRN. Pt left on right side with heels floated on Pillow. Pt on P500 bed and reeducated on PU prevention. RN to picture and measure on Wednesday. WC will follow up on Wednesday for reassessment.
--- NOTE | 2020-06-14 13:38 | PDOC ---
Progress Note-Wound Care SUBJECTIVE Follow-up for wound care and bedside debridement of right hip wound and right lower back wound. Patient states that he is feeling much better. Patient continues to complain of pain with range of motion and transfers. Patient also with complaints of penile irritation and pain with cleansing. Patient states that he has a good appetite and has been eating and drinking well without nausea, vomiting or diarrhea. Patient states that he is continent of of bowel and has been having good bowel movements. Patient states that he has been sleeping well and denies mood sw ings. OBJECTIVE Vital Signs Vital Signs Date Time Temp Pulse Resp B/P (MAP) Pulse Ox O2 Delivery O2 Flow Rate FiO2 06/13/20 07:00 97.7 72 18 108/69 (82) 96 Room Air 97.7 Vital Signs Date Time Temp Pulse Resp B/P (MAP) Pulse Ox O2 Delivery O2 Flow Rate FiO2 06/14/20 11:00 97.7 88 18 107/71 (83) 97 Room Air 97.7 Physical Exam: Patient awake and alert 64-year-old male in no apparent distress. Patient pleasant in conversation. Vital signs are stable. Patient is afebrile. Respirations are even and unlabored. Patient is on room air not requiring supplemental oxygen. Abdomen is soft, nondistended and nontender to palpation. The entire lower back, bilateral buttock bilateral inner thighs and posterior thighs present with maroon to purple discoloration which is blanchable. Multiple overlying superficial wounds are present and are friable with cleansing. The right hip presents with a 2.4 x 12.7 cm ulceration which is 90% slough eschar and 10% granulation. The right lower back presents with a 5.8 x 9.8 cm ulceration which is 100% eschar. Following written consent, premedication with morphine and application of topical lidocaine for ample time. Wounds were debrided using a sterile scalpel and pickups. Patient denied pain with procedure. Bleeding was controlled with pressure and a nitrate stick. Following debridement the right hip wound measures 2.4 x 12.7 x 0.3. Wound bed is now 20% slough and 80% granulation. The right lower back ulceration measures 5.8 x 9.8 x 0.3 cm wound bed is 60% slough, 40% granulation. The right heel continues to present with a blood-filled blister. Surrounding tissue is not boggy nor is a erythemic PLAN 1) stage III pressure ulcers to the right hip and right lower back -Debrided at bedside, see note above. Serial debridements may be required. -Cleanse and pat dry. Apply Thera honey to wound beds and cover with Xeroform. -Patient is on low air loss mattress -Dietary consulting to ensure patient with adequate protein intake for optimal wound healing -Recommend therapy to begin rehabilitation and to help alleviate contractures of the lower extremities 2) multiple stage II pressure ulcerations to the lower back, bilateral buttock and posterior thighs -Cleanse and pat dry. Apply A&E ointment and cover with Xeroform -Patient is on low air loss mattress -Dietary consulting to ensure patient with adequate protein intake for optimal wound healing -Recommend therapy to begin rehabilitation and to help alleviate contractures of the lower extremities 3) DTI of the right heel -Skin-Prep daily -Ensure heel is offloaded as much as possible ANAI HERNANDEZ APRN Jun 14, 2020 13:38
--- NOTE | 2020-06-14 14:28 | NUR ---
SS following up with discharge planning. [employer] denied LTACH. Appeal proceed started. [employer] faxed SS AOR form and physician completed. SS phoned and faxed AOR form and clinical updates to [facility], ; fax [phone]. SS will continue to follow for discharge planning.
[2020-06-14] MEDS ORDERED: LIDOCAINE WITH 8.4% SOD BICARB 3 ML DISP.SYRIN. INJ ONE (14:45)
[2020-06-14 15:00] VITALS: BP 98/62
[2020-06-14] MEDS: DAPTOmycin (GENERIC) IVPB 500 MG in IV NORMAL SALINE 50ML 50 ML IV SCH (17:27)
[2020-06-14 19:00] VITALS: BP 99/67
[2020-06-14 23:00] VITALS: BP 108/68
[2020-06-15 03:25] VITALS: BP 100/61
[2020-06-15] MEDS: IV NORMAL SALINE 1000ML BAG 1,000 ML IV SCH ×2 (04:58→15:08)
[2020-06-15] MEDS: MEROPENEM 500 MG in IV NORMAL SALINE 50ML 50 ML IV SCH ×3 (04:58→18:44)
[2020-06-15 05:41] LABS: BASO % 0 % (0-3); EOS % 0 % (0-3); HEMATOCRIT 27.1 % (39.0-53.0); HEMOGLOBIN 9.3 g/dL (13.0-17.5); LYMPH # 1.9 x10^3/uL (1.0-4.8); LYMPH % 28 % (24-48); MEAN CORPUSCULAR HEMOGLOBIN 40 pg (25-35); MEAN CORPUSCULAR HGB CONC 34 g/dL (31-37); MEAN CORPUSCULAR VOLUME 116 fL (79-100); MONO # 0.3 x10^3/uL (0.0-1.1); MONO % 5 % (0-9); NEUT # 4.5 x10^3/uL (1.8-7.7); NEUT % 67 % (31-73); PLATELET COUNT 125 x10^3/uL (140-400); RED BLOOD COUNT 2.34 x10^6/uL (4.30-5.70); RED CELL DISTRIBUTION WIDTH 14.3 % (11.5-14.5); WHITE BLOOD COUNT 6.8 x10^3/uL (4.0-11.0)
[2020-06-15 05:54] LABS: CALCIUM 6.7 mg/dL (8.5-10.1); CREATININE 0.6 mg/dL (0.7-1.3); GFR 136.5; POTASSIUM 3.1 mmol/L (3.5-5.1)
[2020-06-15 07:00] VITALS: BP 113/70
[2020-06-15] MEDS: LACTOBACILLUS RHAMNOSUS GG 1 CAPSULE. PO SCH ×2 (08:41→21:01)
[2020-06-15] MEDS: oxyCODONE/APAP 7.5/325 1 TAB TABLET PO PRN ×2 (08:41→19:02)
--- NOTE | 2020-06-15 10:04 | PDOC ---
Infectious Disease Note Subjective Subjective Says bed is uncomfortable, otherwise feeling alright Mild Cough with phlegm Denies F/C/S/N/V/D/SOA ROS ROS as mentioned above Vital Sign Vital Signs Vital Signs Date Time Temp Pulse Resp B/P (MAP) Pulse Ox O2 Delivery O2 Flow Rate FiO2 06/15/20 08:41 97 Room Air 06/15/20 07:00 98.4 91 18 113/70 (84) 98.4 Physical Exam PHYSICAL EXAM GENERAL: Propped up in bed, alert in NAD HEENT: Oral cavity pink, no lesions seen NECK: Supple, no JVD. LUNGS: Decreased breath sounds at the bases, otherwise no wheezing. No accessory muscle use. HEART: S1, S2. ABDOMEN: Soft, nontender, nondistended. : Díaz in place, penile abrasion noted EXTREMITIES: Positive for edema, no cyanosis. Yeast present DERMATOLOGIC: No generalized rash. Hyperpigmentation both lower extremity multiple wounds. Wound pictures and descriptions noted with maggots noted including both lower extremities and back,,buttocks, penile area. CENTRAL NERVOUS SYSTEM: Alert and awake, oriented PSYCHIATRIC: Calm and cooperative. RUE-PICC without signs of complications Labs Lab Laboratory Tests Test 06/15/20 05:10 White Blood Count 6.8 x10^3/uL (4.0-11.0) Red Blood Count 2.34 x10^6/uL (4.30-5.70) Hemoglobin 9.3 g/dL (13.0-17.5) Hematocrit 27.1 % (39.0-53.0) Mean Corpuscular Volume 116 fL (79-100) Mean Corpuscular Hemoglobin 40 pg (25-35) Mean Corpuscular Hemoglobin Concent 34 g/dL (31-37) Red Cell Distribution Width 14.3 % (11.5-14.5) Platelet Count 125 x10^3/uL (140-400) Neutrophils (%) (Auto) 67 % (31-73) Lymphocytes (%) (Auto) 28 % (24-48) Monocytes (%) (Auto) 5 % (0-9) Eosinophils (%) (Auto) 0 % (0-3) Basophils (%) (Auto) 0 % (0-3) Neutrophils # (Auto) 4.5 x10^3/uL (1.8-7.7) Lymphocytes # (Auto) 1.9 x10^3/uL (1.0-4.8) Monocytes # (Auto) 0.3 x10^3/uL (0.0-1.1) Eosinophils # (Auto) 0.0 x10^3/uL (0.0-0.7) Basophils # (Auto) 0.0 x10^3/uL (0.0-0.2) Sodium Level 135 mmol/L (136-145) Potassium Level 3.1 mmol/L (3.5-5.1) Chloride Level 102 mmol/L (98-107) Carbon Dioxide Level 26 mmol/L (21-32) Anion Gap 7 (6-14) Blood Urea Nitrogen 15 mg/dL (8-26) Creatinine 0.6 mg/dL (0.7-1.3) Estimated GFR (Cockcroft-Gault) 136.5 Glucose Level 87 mg/dL (70-99) Calcium Level 6.7 mg/dL (8.5-10.1) Micro Microbiology 06/12/20 Blood Culture - Preliminary, Resulted NO GROWTH AFTER 3 DAYS URINE CULTURE Final Final GREATER THAN 100,000 CFU/ML GRAM POSITIVE COCCI on 06/13/20 at 1421 FINAL ID= [AEROCOCCUS URINAE] Objective Assessment Severe sepsis polymicrobial bacteremia improving Polymicrobial infection, ecoli, enterococcus raffinosus,diphtheroids and staph hominis POA at OSH, here repeat BC 06/11 NGTD Urinary tract infection.aerococcus Urinary retention, s/p Díaz placement Multiple wounds and Penile ulcer with maggots Stage III pressure ulcers to the right hip and right lower back s/p bedside debridement, 06/14 Hypothyroidism. Anemia. Severe protein-calorie malnutrition. Yeast in groin Thrombocytopenia Plan Plan of Care Daptomycin, Merrem and Micafungin Follow-up repeat blood cultures here Wound care as directed Follow up suscep for enterococcus raffinosus at OSH PICC care monitor labs/temp Supportive care. Discussed with nursing staff Attending Co-Sign Attending Co-Sign Attending Co-Sign The patient was seen and examined at the bedside. The chart was reviewed. The case was discussed. Agree with the plan of care. NEGAR MAHAJAN APRN Jun 15, 2020 10:04 REYNALDO BOLIVAR MD Jun 15, 2020 13:10
[2020-06-15] MEDS: MICAFUNGIN 100 MG in IV DEXTROSE 5% 100ML 100 ML IV SCH (11:06)
[2020-06-15 11:23] VITALS: BP 97/66
--- NOTE | 2020-06-15 13:31 | PDOC ---
[employer] PROGRESS NOTE Date of Service DOS: DATE: 06/15/20 TIME: 13:27 Chief Complaint Chief Complaint Severe sepsis polymicrobial bacteremia improving Polymicrobial infection, E. coli, Enterococcus raffinosus, Diphtheroids and Staphylococcus hominis, POA at OSH, here repeat BC NGTD Urinary tract infection, Aerococcus unrinae Urinary retention Multiple wounds with maggots Penile ulcer with maggots Hypothyroidism Anemia PAD Severe protein-calorie malnutrition Yeast in groin History of Present Illness History of Present Illness 06/15/2020 Patient is seen and examined He is laying in bed in NAD Patient is on low air loss mattress for pressure ulcer management Discussed with RN Charts reviewed 06/14/2020 Patient seen and examined Laying in bed, NAD States he feels better Penile ulcer and wounds improving Bladder irrigation required for urinary retention, large debris and bloody urine recovered and sent to pathology Discussed with RN Chart reviewed 06/13/2020 Patient seen and examined Laying in bed, NAD Purulent discharge from penile ulcer, improved Discussed with RN Chart reviewed 06/12/2020 Patient seen and examined Laying in bed, NAD Purulent discharge from penile ulcer Discussed with RN Chart reviewed Vitals/I&O Vitals/I&O: Vital Signs Date Time Temp Pulse Resp B/P (MAP) Pulse Ox O2 Delivery O2 Flow Rate FiO2 06/15/20 11:23 98.4 89 20 97/66 (76) 96 Room Air 98.4 I & O 06/14/20 06/14/20 06/15/20 15:00 23:00 07:00 Intake Total 1150 ml 50 ml 500 ml Output Total 1200 ml 250 ml Balance 1150 ml -1150 ml 250 ml Physical Exam Physical Exam: GENERAL: Propped up in bed, alert in NAD HEENT: Oral cavity pink, no lesions seen NECK: Supple, no JVD. LUNGS: Decreased breath sounds at the bases, otherwise no wheezing. No accessory muscle use. HEART: S1, S2. ABDOMEN: Soft, nontender, nondistended. : Díaz in place, penile abrasion noted EXTREMITIES: Positive for edema, no cyanosis. Yeast present DERMATOLOGIC: No generalized rash. Hyperpigmentation both lower extremity multiple wounds. Wound pictures and descriptions noted with maggots noted including both lower extremities and back,,buttocks, penile area. CENTRAL NERVOUS SYSTEM: Alert and awake, oriented PSYCHIATRIC: Calm and cooperative. RUE-PICC without signs of complications General: Alert, Cooperative, No acute distress Heart: Regular rate, Normal S1, Normal S2 Lungs: Other (Decreased breath sounds at bases) Abdomen: Soft, No tenderness Extremities: No clubbing Skin: Other (LE PAD and chronic venous insufficiency, edema B/L, purulent penile ulcer) Labs Labs: Laboratory Tests Test 06/15/20 05:10 White Blood Count 6.8 x10^3/uL (4.0-11.0) Red Blood Count 2.34 x10^6/uL (4.30-5.70) Hemoglobin 9.3 g/dL (13.0-17.5) Hematocrit 27.1 % (39.0-53.0) Mean Corpuscular Volume 116 fL (79-100) Mean Corpuscular Hemoglobin 40 pg (25-35) Mean Corpuscular Hemoglobin Concent 34 g/dL (31-37) Red Cell Distribution Width 14.3 % (11.5-14.5) Platelet Count 125 x10^3/uL (140-400) Neutrophils (%) (Auto) 67 % (31-73) Lymphocytes (%) (Auto) 28 % (24-48) Monocytes (%) (Auto) 5 % (0-9) Eosinophils (%) (Auto) 0 % (0-3) Basophils (%) (Auto) 0 % (0-3) Neutrophils # (Auto) 4.5 x10^3/uL (1.8-7.7) Lymphocytes # (Auto) 1.9 x10^3/uL (1.0-4.8) Monocytes # (Auto) 0.3 x10^3/uL (0.0-1.1) Eosinophils # (Auto) 0.0 x10^3/uL (0.0-0.7) Basophils # (Auto) 0.0 x10^3/uL (0.0-0.2) Sodium Level 135 mmol/L (136-145) Potassium Level 3.1 mmol/L (3.5-5.1) Chloride Level 102 mmol/L (98-107) Carbon Dioxide Level 26 mmol/L (21-32) Anion Gap 7 (6-14) Blood Urea Nitrogen 15 mg/dL (8-26) Creatinine 0.6 mg/dL (0.7-1.3) Estimated GFR (Cockcroft-Gault) 136.5 Glucose Level 87 mg/dL (70-99) Calcium Level 6.7 mg/dL (8.5-10.1) Assessment and Plan Assessmemt and Plan Assessment Severe sepsis polymicrobial bacteremia improving Polymicrobial infection, E. coli, Enterococcus raffinosus, Diphtheroids and Staphylococcus hominis, POA at OSH, here repeat BC NGTD Urinary tract infection, Aerococcus unrinae Urinary retention Multiple wounds with maggots Penile ulcer with maggots Hypothyroidism Anemia PAD Severe protein-calorie malnutrition Yeast in groin Plan Cardiac monitoring Wound care IV antibiotics per ID DVT prophylaxis Trend labs Awaiting pathology report for urine PT/OT Appreciate subspecialist input D/C disposition pending Comment Review of Relevant I have reviewed the following items daisy (where applicable) has been applied. Medications: Current Medications Medications (Trade) Dose Ordered Sig/Rachel Route PRN Reason Start Time Stop Time Status Last Admin Dose Admin Lidocaine HCl (Buffered Lidocaine 1%) 6 ml 1X ONCE INJ 06/14/20 14:45 06/14/20 14:46 DC 06/14/20 15:02 Justicifation of Admission Dx: Justifications for Admission: Justification of Admission Dx: N/A LISA NG III DO Jun 15, 2020 13:31
[2020-06-15 15:00] VITALS: BP 107/61
[2020-06-15] MEDS: DAPTOmycin (GENERIC) IVPB 500 MG in IV NORMAL SALINE 50ML 50 ML IV SCH (17:51)
[2020-06-15 19:55] VITALS: BP 104/64
--- NOTE | 2020-06-15 20:50 | CONS ---
DATE OF CONSULTATION: 06/15/2020 PODIATRIC CONSULTATION REASON FOR CONSULTATION: Evaluate and treat longstanding painful mycotic nails. REVIEW OF RECORD: This is a 64-year-old gentleman that was admitted through the Emergency Room via ambulance. He has multiple wounds, failure to thrive, maggots, penile wounds and penile maggots. MEDICAL HISTORY: Failure to thrive and hypothyroidism. ALLERGIES: None. MEDICATIONS: Reviewed including antibiotics IV. PHYSICAL EXAMINATION: DERMAL: The patient has elongated severe mycotic nails of all toes x 10. Multiple layers of fungal involvement; second toenail, left is probably the most difficult one to try to treat. Decreased turgor, absence of hair growth is noted, discoloration of the lower extremity and feet. VASCULAR: Pedal pulses are hard to palpate, dorsalis pedis and posterior tibial due to the extensive edema of the leg and feet. Capillary refill time is greater than 5 seconds. Skin temperature is within normal limits. NEUROLOGIC: The patient is very reactive and very sensitive to any pressure and relates no numbness, burning or tingling. ASSESSMENT: 1. Clinical evidence of severe chronic onychomycosis, onychogryphosis, onychocryptosis of all 10 toenails. 2. Peripheral vascular disease with extensive edema along with a history of many wounds all over his body and legs. PLAN: Debridement of all mycotic nails performed using double action nail forceps and rotary drill. No hemorrhage incurred, try to encourage the patient to continue with maintenance care in the future. JERARDO SNOW DPM DR: XUAN/analisa JOB#: [id number] / [id number]
[2020-06-15 23:21] VITALS: BP 100/67
[2020-06-16] MEDS: MEROPENEM 500 MG in IV NORMAL SALINE 50ML 50 ML IV SCH ×4 (00:14→18:49)
[2020-06-16] MEDS: IV NORMAL SALINE 1000ML BAG 1,000 ML IV SCH ×2 (02:46→12:51)
[2020-06-16 03:25] VITALS: BP 97/67
[2020-06-16 06:45] LABS: BASO # 0.1 x10^3/uL (0.0-0.2); BASO % 1 % (0-3); EOS % 0 % (0-3); HEMATOCRIT 26.4 % (39.0-53.0); HEMOGLOBIN 9.1 g/dL (13.0-17.5); LYMPH % 27 % (24-48); MEAN CORPUSCULAR HEMOGLOBIN 40 pg (25-35); MEAN CORPUSCULAR HGB CONC 34 g/dL (31-37); MEAN CORPUSCULAR VOLUME 116 fL (79-100); MONO # 0.4 x10^3/uL (0.0-1.1); MONO % 5 % (0-9); NEUT # 4.9 x10^3/uL (1.8-7.7); NEUT % 66 % (31-73); PLATELET COUNT 139 x10^3/uL (140-400); RED BLOOD COUNT 2.29 x10^6/uL (4.30-5.70); RED CELL DISTRIBUTION WIDTH 14.2 % (11.5-14.5); WHITE BLOOD COUNT 7.4 x10^3/uL (4.0-11.0)
[2020-06-16 07:00] VITALS: BP 105/70
[2020-06-16 07:00] LABS: CREATININE 0.5 mg/dL (0.7-1.3); GFR 168.5
[2020-06-16 07:16] LABS: CALCIUM 6.6 mg/dL (8.5-10.1)
[2020-06-16] MEDS: oxyCODONE/APAP 7.5/325 1 TAB TABLET PO PRN (09:01)
[2020-06-16] MEDS: LEVOTHYROXINE 175 MCG TABLET PO SCH (09:01)
[2020-06-16] MEDS: LACTOBACILLUS RHAMNOSUS GG 1 CAPSULE. PO SCH ×2 (09:01→20:32)
[2020-06-16] MEDS: MICAFUNGIN 100 MG in IV DEXTROSE 5% 100ML 100 ML IV SCH (09:02)
--- NOTE | 2020-06-16 10:09 | PDOC ---
Infectious Disease Note Subjective Subjective More comfortable today Denies F/C/S/N/V/D/SOA ROS ROS as mentioned above Vital Sign Vital Signs Vital Signs Date Time Temp Pulse Resp B/P (MAP) Pulse Ox O2 Delivery O2 Flow Rate FiO2 06/16/20 09:01 97 Room Air 06/16/20 07:00 97.6 83 20 105/70 (82) 97.6 Physical Exam PHYSICAL EXAM GENERAL: Propped up in bed, alert in NAD HEENT: Oral cavity pink, no lesions seen NECK: Supple, no JVD. LUNGS: Decreased breath sounds at the bases, No accessory muscle use. HEART: S1, S2. ABDOMEN: Soft, nontender, nondistended. : Díaz in place, penile abrasion noted EXTREMITIES: Positive for edema, no cyanosis. Yeast present DERMATOLOGIC: No generalized rash. Hyperpigmentation both lower extremity multiple wounds. Wound pictures and descriptions noted with maggots noted including both lower extremities and back,,buttocks, penile area. CENTRAL NERVOUS SYSTEM: Alert, answers simple questions appropriately PSYCHIATRIC: Calm and cooperative. RUE-PICC without signs of complications Labs Lab Laboratory Tests Test 06/16/20 06:35 White Blood Count 7.4 x10^3/uL (4.0-11.0) Red Blood Count 2.29 x10^6/uL (4.30-5.70) Hemoglobin 9.1 g/dL (13.0-17.5) Hematocrit 26.4 % (39.0-53.0) Mean Corpuscular Volume 116 fL (79-100) Mean Corpuscular Hemoglobin 40 pg (25-35) Mean Corpuscular Hemoglobin Concent 34 g/dL (31-37) Red Cell Distribution Width 14.2 % (11.5-14.5) Platelet Count 139 x10^3/uL (140-400) Neutrophils (%) (Auto) 66 % (31-73) Lymphocytes (%) (Auto) 27 % (24-48) Monocytes (%) (Auto) 5 % (0-9) Eosinophils (%) (Auto) 0 % (0-3) Basophils (%) (Auto) 1 % (0-3) Neutrophils # (Auto) 4.9 x10^3/uL (1.8-7.7) Lymphocytes # (Auto) 2.0 x10^3/uL (1.0-4.8) Monocytes # (Auto) 0.4 x10^3/uL (0.0-1.1) Eosinophils # (Auto) 0.0 x10^3/uL (0.0-0.7) Basophils # (Auto) 0.1 x10^3/uL (0.0-0.2) Sodium Level 134 mmol/L (136-145) Potassium Level 3.0 mmol/L (3.5-5.1) Chloride Level 99 mmol/L (98-107) Carbon Dioxide Level 29 mmol/L (21-32) Anion Gap 6 (6-14) Blood Urea Nitrogen 8 mg/dL (8-26) Creatinine 0.5 mg/dL (0.7-1.3) Estimated GFR (Cockcroft-Gault) 168.5 Glucose Level 87 mg/dL (70-99) Calcium Level 6.6 mg/dL (8.5-10.1) Creatine Kinase 82 U/L (39-308) Micro Microbiology 06/12/20 Blood Culture - Preliminary, Resulted NO GROWTH AFTER 4 DAYS URINE CULTURE Final Final GREATER THAN 100,000 CFU/ML GRAM POSITIVE COCCI on 06/13/20 at 1421 FINAL ID= [AEROCOCCUS URINAE] Objective Assessment Severe sepsis polymicrobial bacteremia - improving Polymicrobial bacteremia from 06/10 ([facility]) -06/10: 1st set positive for Diphtheroids and E. coli (saucedo-S); 2nd set positive for enterococcus raffinosus, staph hominis. D/w St [facility] micro -Repeat BC here on 06/12 NGTD Urinary tract infection. aerococcus Urinary retention, s/p Díaz placement Multiple wounds and Penile ulcer with maggots Stage III pressure ulcers to the right hip and right lower back s/p bedside debridement, 06/14 Hypothyroidism. Anemia. Severe protein-calorie malnutrition. Yeast in groin Thrombocytopenia Plan Plan of Care Daptomycin, Merrem and Micafungin Monitor for abx toxicities. CK 82 on 06/16. AST 23, ALT 10 Probiotics Repeat blood cultures here 06/12 neg to date Wound care as directed Copy of micro requested from [facility]. Susceptibility work-up for E. raffinosus was added PICC care Supportive care. Discussed with nursing staff Attending Co-Sign Attending Co-Sign The patient was seen and examined at the bedside. The chart was reviewed. The case was discussed. Agree with the plan of care. NEGAR MAHAJAN APRN Jun 16, 2020 10:09 REYNALDO BOLIVAR MD Jun 16, 2020 14:44
[2020-06-16 11:00] VITALS: BP 105/68
--- NOTE | 2020-06-16 12:03 | PDOC ---
[employer] PROGRESS NOTE Date of Service DOS: DATE: 06/16/20 TIME: 11:58 Chief Complaint Chief Complaint Severe sepsis polymicrobial bacteremia improving Polymicrobial infection, E. coli, Enterococcus raffinosus, Diphtheroids and Staphylococcus hominis, POA at OSH, here repeat BC NGTD Urinary tract infection, Aerococcus unrinae Urinary retention Multiple wounds with maggots Penile ulcer with maggots Hypothyroidism Anemia PAD Severe protein-calorie malnutrition Yeast in groin History of Present Illness History of Present Illness 06/16/2020 Patient seen and examined Resting in bed, NAD Patient is on low air loss mattress for pressure ulcer management Díaz BSD Discussed with RN Charts reviewed 06/15/2020 Patient is seen and examined He is laying in bed in NAD Patient is on low air loss mattress for pressure ulcer management Discussed with RN Charts reviewed 06/14/2020 Patient seen and examined Laying in bed, NAD States he feels better Penile ulcer and wounds improving Bladder irrigation required for urinary retention, large debris and bloody urine recovered and sent to pathology Discussed with RN Chart reviewed 06/13/2020 Patient seen and examined Laying in bed, NAD Purulent discharge from penile ulcer, improved Discussed with RN Chart reviewed 06/12/2020 Patient seen and examined Laying in bed, NAD Purulent discharge from penile ulcer Discussed with RN Chart reviewed Vitals/I&O Vitals/I&O: Vital Signs Date Time Temp Pulse Resp B/P (MAP) Pulse Ox O2 Delivery O2 Flow Rate FiO2 06/16/20 11:00 97.8 87 20 105/68 (80) 98 Room Air 97.8 I & O 06/15/20 06/15/20 06/16/20 15:00 23:00 07:00 Intake Total 440 ml 400 ml 750 ml Output Total 750 ml Balance 440 ml 400 ml 0 ml Physical Exam Physical Exam: GENERAL: Resting, NAD HEENT: Oral cavity pink, no lesions seen NECK: Supple, no JVD. LUNGS: Decreased breath sounds at the bases, No accessory muscle use. HEART: S1, S2. ABDOMEN: Soft, nontender, nondistended. : Díaz in place, penile abrasion noted EXTREMITIES: Positive for edema, no cyanosis. Yeast present DERMATOLOGIC: No generalized rash. Hyperpigmentation both lower extremity multiple wounds. Wound pictures and descriptions noted with maggots noted including both lower extremities and back,,buttocks, penile area. CENTRAL NERVOUS SYSTEM: Resting, NAD PSYCHIATRIC: Resting, NAD RUE-PICC without signs of complications General: No acute distress Heart: Regular rate, Normal S1, Normal S2 Lungs: Other (Decreased breath sounds at bases) Abdomen: Soft, No tenderness Extremities: No clubbing Skin: Other (LE PAD and chronic venous insufficiency, edema B/L, purulent penile ulcer) Labs Labs: Laboratory Tests Test 06/16/20 06:35 White Blood Count 7.4 x10^3/uL (4.0-11.0) Red Blood Count 2.29 x10^6/uL (4.30-5.70) Hemoglobin 9.1 g/dL (13.0-17.5) Hematocrit 26.4 % (39.0-53.0) Mean Corpuscular Volume 116 fL (79-100) Mean Corpuscular Hemoglobin 40 pg (25-35) Mean Corpuscular Hemoglobin Concent 34 g/dL (31-37) Red Cell Distribution Width 14.2 % (11.5-14.5) Platelet Count 139 x10^3/uL (140-400) Neutrophils (%) (Auto) 66 % (31-73) Lymphocytes (%) (Auto) 27 % (24-48) Monocytes (%) (Auto) 5 % (0-9) Eosinophils (%) (Auto) 0 % (0-3) Basophils (%) (Auto) 1 % (0-3) Neutrophils # (Auto) 4.9 x10^3/uL (1.8-7.7) Lymphocytes # (Auto) 2.0 x10^3/uL (1.0-4.8) Monocytes # (Auto) 0.4 x10^3/uL (0.0-1.1) Eosinophils # (Auto) 0.0 x10^3/uL (0.0-0.7) Basophils # (Auto) 0.1 x10^3/uL (0.0-0.2) Sodium Level 134 mmol/L (136-145) Potassium Level 3.0 mmol/L (3.5-5.1) Chloride Level 99 mmol/L (98-107) Carbon Dioxide Level 29 mmol/L (21-32) Anion Gap 6 (6-14) Blood Urea Nitrogen 8 mg/dL (8-26) Creatinine 0.5 mg/dL (0.7-1.3) Estimated GFR (Cockcroft-Gault) 168.5 Glucose Level 87 mg/dL (70-99) Calcium Level 6.6 mg/dL (8.5-10.1) Creatine Kinase 82 U/L (39-308) Review of Systems Review of Systems: Not obtained 2/2 patient resting. Assessment and Plan Assessmemt and Plan ASSESSMENT Severe sepsis polymicrobial bacteremia improving Polymicrobial infection, E. coli, Enterococcus raffinosus, Diphtheroids and Staphylococcus hominis, POA at OSH, here repeat BC NGTD Urinary tract infection, Aerococcus unrinae Urinary retention Multiple wounds with maggots Penile ulcer with maggots Hypothyroidism Anemia PAD Severe protein-calorie malnutrition Yeast in groin PLAN Cardiac monitoring Continue IV antibiotics/antifungals per ID Trend labs Wound care PT/OT Appreciate subspecialist input DVT prophylaxis Full code Discharge disposition pending Comment Review of Relevant I have reviewed the following items daisy (where applicable) has been applied. Medications: Current Medications Medications (Trade) Dose Ordered Sig/Rachel Route PRN Reason Start Time Stop Time Status Last Admin Dose Admin Levothyroxine Sodium (Synthroid) 175 mcg DAILY06 PO 06/16/20 08:00 06/16/20 09:01 Justicifation of Admission Dx: Justifications for Admission: Justification of Admission Dx: N/A LISA NG III DO Jun 16, 2020 12:03
[2020-06-16 15:00] VITALS: BP 99/60
[2020-06-16] MEDS: MORPHINE SULFATE 2 MG/ML VIAL. IV PRN (16:47)
[2020-06-16] MEDS: DAPTOmycin (GENERIC) IVPB 500 MG in IV NORMAL SALINE 50ML 50 ML IV SCH (16:50)
[2020-06-16 19:10] VITALS: BP 107/66
[2020-06-16] MEDS: ASCORBIC ACID 500 MG TABLET PO SCH (20:32)
[2020-06-16] MEDS: ZINC SULFATE 220 MG CAPSULE. PO SCH (20:33)
[2020-06-16] MEDS: MULTIVITAMIN with MINERAL TABLET. PO SCH (20:33)
[2020-06-16 23:15] VITALS: BP 91/56
[2020-06-17] MEDS: MEROPENEM 500 MG in IV NORMAL SALINE 50ML 50 ML IV SCH ×2 (01:02→05:19)
[2020-06-17 03:00] VITALS: BP 103/61
[2020-06-17] MEDS: oxyCODONE/APAP 7.5/325 1 TAB TABLET PO PRN (03:39)
[2020-06-17] MEDS: LEVOTHYROXINE 175 MCG TABLET PO SCH (05:19)
[2020-06-17] MEDS: IV NORMAL SALINE 1000ML BAG 1,000 ML IV SCH (06:42)
[2020-06-17 07:00] VITALS: BP 97/64
[2020-06-17 07:12] LABS: BASO % 1 % (0-3); EOS % 0 % (0-3); HEMATOCRIT 25.4 % (39.0-53.0); HEMOGLOBIN 8.8 g/dL (13.0-17.5); LYMPH # 1.4 x10^3/uL (1.0-4.8); LYMPH % 23 % (24-48); MEAN CORPUSCULAR HEMOGLOBIN 40 pg (25-35); MEAN CORPUSCULAR HGB CONC 35 g/dL (31-37); MEAN CORPUSCULAR VOLUME 115 fL (79-100); MONO # 0.4 x10^3/uL (0.0-1.1); MONO % 7 % (0-9); NEUT # 4.3 x10^3/uL (1.8-7.7); NEUT % 70 % (31-73); PLATELET COUNT 120 x10^3/uL (140-400); RED BLOOD COUNT 2.21 x10^6/uL (4.30-5.70); RED CELL DISTRIBUTION WIDTH 14.3 % (11.5-14.5); WHITE BLOOD COUNT 6.2 x10^3/uL (4.0-11.0)
[2020-06-17 07:16] LABS: CALCIUM 6.9 mg/dL (8.5-10.1); CREATININE 0.4 mg/dL (0.7-1.3)
[2020-06-17] MEDS: MULTIVITAMIN with MINERAL TABLET. PO SCH (08:20)
[2020-06-17] MEDS: ZINC SULFATE 220 MG CAPSULE. PO SCH (08:20)
[2020-06-17] MEDS: LACTOBACILLUS RHAMNOSUS GG 1 CAPSULE. PO SCH (08:20)
[2020-06-17] MEDS: MICAFUNGIN 100 MG in IV DEXTROSE 5% 100ML 100 ML IV SCH (08:20)
[2020-06-17] MEDS: ASCORBIC ACID 500 MG TABLET PO SCH (08:20)
--- NOTE | 2020-06-17 09:42 | PDOC ---
Infectious Disease Note Subjective Subjective More comfortable today Denies F/C/S/N/V/D/SOA Eating ok ROS ROS o/w neg Vital Sign Vital Signs Vital Signs Date Time Temp Pulse Resp B/P (MAP) Pulse Ox O2 Delivery O2 Flow Rate FiO2 06/17/20 07:00 98.1 87 16 97/64 (75) 95 Room Air 98.1 Physical Exam PHYSICAL EXAM GENERAL: Resting, NAD on [place] HEENT: Oral cavity pink, no lesions seen NECK: Supple, no JVD. LUNGS: Decreased breath sounds at the bases, No accessory muscle use. HEART: S1, S2. ABDOMEN: Soft, nontender, nondistended. : Díaz in place, penile abrasion noted EXTREMITIES: Positive for edema, no cyanosis. Yeast present DERMATOLOGIC: No generalized rash. Hyperpigmentation both lower extremity multiple wounds. Wound pictures and descriptions noted with maggots noted including both lower extremities and back,,buttocks, penile area at admit CENTRAL NERVOUS SYSTEM: Resting, NAD PSYCHIATRIC: Resting, NAD RUE-PICC without signs of complications Labs Lab Laboratory Tests Test 06/17/20 06:40 White Blood Count 6.2 x10^3/uL (4.0-11.0) Red Blood Count 2.21 x10^6/uL (4.30-5.70) Hemoglobin 8.8 g/dL (13.0-17.5) Hematocrit 25.4 % (39.0-53.0) Mean Corpuscular Volume 115 fL (79-100) Mean Corpuscular Hemoglobin 40 pg (25-35) Mean Corpuscular Hemoglobin Concent 35 g/dL (31-37) Red Cell Distribution Width 14.3 % (11.5-14.5) Platelet Count 120 x10^3/uL (140-400) Neutrophils (%) (Auto) 70 % (31-73) Lymphocytes (%) (Auto) 23 % (24-48) Monocytes (%) (Auto) 7 % (0-9) Eosinophils (%) (Auto) 0 % (0-3) Basophils (%) (Auto) 1 % (0-3) Neutrophils # (Auto) 4.3 x10^3/uL (1.8-7.7) Lymphocytes # (Auto) 1.4 x10^3/uL (1.0-4.8) Monocytes # (Auto) 0.4 x10^3/uL (0.0-1.1) Eosinophils # (Auto) 0.0 x10^3/uL (0.0-0.7) Basophils # (Auto) 0.0 x10^3/uL (0.0-0.2) Sodium Level 133 mmol/L (136-145) Potassium Level 3.0 mmol/L (3.5-5.1) Chloride Level 98 mmol/L (98-107) Carbon Dioxide Level 31 mmol/L (21-32) Anion Gap 4 (6-14) Blood Urea Nitrogen 7 mg/dL (8-26) Creatinine 0.4 mg/dL (0.7-1.3) Estimated GFR (Cockcroft-Gault) 218.0 Glucose Level 88 mg/dL (70-99) Calcium Level 6.9 mg/dL (8.5-10.1) Micro Microbiology 06/12/20 Blood Culture - Final, Complete NO GROWTH AFTER 5 DAYS 06/11/20 Urine Culture - Final, Complete Objective Assessment Severe sepsis polymicrobial bacteremia - improving Polymicrobial bacteremia from 06/10 ([facility]) Received copy of micro data from [place]. The 1st set of BC from 06/10 were positive for Diphtheroids and E. coli (saucedo-S). The 2nd set of BC from 06/10 were positive for E. raffinosus (amp-S), Staph hominis and Oligella Urethralis. Urinary tract infection. aerococcus Urinary retention, s/p Díaz placement Multiple wounds and Penile ulcer with maggots Stage III pressure ulcers to the right hip and right lower back s/p bedside debridement, 06/14 Hypothyroidism. Anemia. Severe protein-calorie malnutrition. Yeast in groin Thrombocytopenia Plan Plan of Care D/c Daptomycin, Merrem and change to unasyn Cont Micafungin Monitor for abx toxicities. CK 82 on 06/16. AST 23, ALT 10 Probiotics Repeat blood cultures here 06/12 neg to date Wound care as directed PICC care Supportive care. Discussed with nursing staff Awaiting transfer to [facility] D/w nursing DAVID HYDE MD Jun 17, 2020 09:42
--- NOTE | 2020-06-17 10:27 | NUR ---
SS following up with discharge planning. SS received phone call from [employer] stating that appeal for LTACH has been processed and the denial has been overturned. Pt spoke with [facility] b2b sales representative on the phone and was notified that he has authorization for LTACH. [facility] faxed letter to CM and SS. SS phoned and faxed [facility] letter and discharge orders to [facility], ; fax [phone]. SS currently awaiting bed availability and transport time. program services planner to assist with setting up transportation once bed available. Pt's RN notified.
[2020-06-17 11:00] VITALS: BP 98/65
--- NOTE | 2020-06-17 11:33 | PDOC ---
[employer] PROGRESS NOTE Date of Service DOS: DATE: 06/17/20 TIME: 11:15 Chief Complaint Chief Complaint Severe sepsis polymicrobial bacteremia improving Polymicrobial infection, E. coli, Enterococcus raffinosus, Diphtheroids and Staphylococcus hominis, POA at OSH, here repeat BC NGTD Urinary tract infection, Aerococcus unrinae Urinary retention Multiple wounds with maggots Penile ulcer with maggots Hypothyroidism Anemia PAD Severe protein-calorie malnutrition Yeast in groin History of Present Illness History of Present Illness 06/17/2020 Pt seen and examined, at baseline Pt resting in bed, NAD Chart reviewed Discussed with RN and case specialist 06/16/2020 Patient seen and examined Resting in bed, NAD Patient is on low air loss mattress for pressure ulcer management Díaz BSD Discussed with RN Charts reviewed 06/15/2020 Patient is seen and examined He is laying in bed in NAD Patient is on low air loss mattress for pressure ulcer management Discussed with RN Charts reviewed 06/14/2020 Patient seen and examined Laying in bed, NAD States he feels better Penile ulcer and wounds improving Bladder irrigation required for urinary retention, large debris and bloody urine recovered and sent to pathology Discussed with RN Chart reviewed 06/13/2020 Patient seen and examined Laying in bed, NAD Purulent discharge from penile ulcer, improved Discussed with RN Chart reviewed 06/12/2020 Patient seen and examined Laying in bed, NAD Purulent discharge from penile ulcer Discussed with RN Chart reviewed Vitals/I&O Vitals/I&O: Vital Signs Date Time Temp Pulse Resp B/P (MAP) Pulse Ox O2 Delivery O2 Flow Rate FiO2 06/17/20 08:00 Room Air 06/17/20 07:00 98.1 87 16 97/64 (75) 95 98.1 I & O 06/16/20 06/16/20 06/17/20 15:00 23:00 07:00 Intake Total 750 ml 580 ml 950 ml Output Total 850 ml 690 ml Balance 750 ml -270 ml 260 ml Physical Exam Physical Exam: GENERAL: Resting, NAD on [place] HEENT: Oral cavity pink, no lesions seen NECK: Supple, no JVD. LUNGS: Decreased breath sounds at the bases, No accessory muscle use. HEART: S1, S2. ABDOMEN: Soft, nontender, nondistended. : Díaz in place, penile abrasion noted EXTREMITIES: Positive for edema, no cyanosis. Yeast present DERMATOLOGIC: No generalized rash. Hyperpigmentation both lower extremity multiple wounds. Wound pictures and descriptions noted with maggots noted including both lower extremities and back,,buttocks, penile area at admit CENTRAL NERVOUS SYSTEM: Resting, NAD PSYCHIATRIC: Resting, NAD RUE-PICC without signs of complications General: No acute distress Heart: Regular rate, Normal S1, Normal S2 Lungs: Clear, Other (Decreased breath sounds at bases) Abdomen: No tenderness Extremities: No clubbing, No cyanosis Skin: Other (LE PAD and chronic venous insufficiency, edema B/L, purulent penile ulcer) Labs Labs: Laboratory Tests Test 06/17/20 06:40 White Blood Count 6.2 x10^3/uL (4.0-11.0) Red Blood Count 2.21 x10^6/uL (4.30-5.70) Hemoglobin 8.8 g/dL (13.0-17.5) Hematocrit 25.4 % (39.0-53.0) Mean Corpuscular Volume 115 fL (79-100) Mean Corpuscular Hemoglobin 40 pg (25-35) Mean Corpuscular Hemoglobin Concent 35 g/dL (31-37) Red Cell Distribution Width 14.3 % (11.5-14.5) Platelet Count 120 x10^3/uL (140-400) Neutrophils (%) (Auto) 70 % (31-73) Lymphocytes (%) (Auto) 23 % (24-48) Monocytes (%) (Auto) 7 % (0-9) Eosinophils (%) (Auto) 0 % (0-3) Basophils (%) (Auto) 1 % (0-3) Neutrophils # (Auto) 4.3 x10^3/uL (1.8-7.7) Lymphocytes # (Auto) 1.4 x10^3/uL (1.0-4.8) Monocytes # (Auto) 0.4 x10^3/uL (0.0-1.1) Eosinophils # (Auto) 0.0 x10^3/uL (0.0-0.7) Basophils # (Auto) 0.0 x10^3/uL (0.0-0.2) Sodium Level 133 mmol/L (136-145) Potassium Level 3.0 mmol/L (3.5-5.1) Chloride Level 98 mmol/L (98-107) Carbon Dioxide Level 31 mmol/L (21-32) Anion Gap 4 (6-14) Blood Urea Nitrogen 7 mg/dL (8-26) Creatinine 0.4 mg/dL (0.7-1.3) Estimated GFR (Cockcroft-Gault) 218.0 Glucose Level 88 mg/dL (70-99) Calcium Level 6.9 mg/dL (8.5-10.1) Review of Systems Review of Systems: Pt denies pain Pt denies weakness Assessment and Plan Assessmemt and Plan 06/17/20 ASSESSMENT Severe sepsis polymicrobial bacteremia improving Polymicrobial infection, E. coli, Enterococcus raffinosus, Diphtheroids and Staphylococcus hominis, POA at OSH, here repeat BC NGTD UTI, urinary retention Multiple wounds with maggots Yeast in groin Hypothyroidism Anemia PAD Severe protein-calorie malnutrition PLAN Cardiac monitoring Continue IV antibiotics/antifungals per ID Trend labs Wound care PT/OT DVT prophylaxis Full code Will discharge to [facility] Comment Review of Relevant I have reviewed the following items daisy (where applicable) has been applied. Medications: Current Medications Medications (Trade) Dose Ordered Sig/Rachel Route PRN Reason Start Time Stop Time Status Last Admin Dose Admin Ascorbic Acid (Vitamin C) 500 mg DAILY PO 06/16/20 20:00 06/17/20 08:20 Multivitamins (Thera M Plus) 1 tab DAILY PO 06/16/20 20:00 06/17/20 08:20 Zinc Sulfate (Orazinc) 220 mg DAILY PO 06/16/20 20:00 06/17/20 08:20 Justicifation of Admission Dx: Justifications for Admission: Justification of Admission Dx: N/A LISA NG III DO Jun 17, 2020 11:33
[2020-06-17] MEDS ORDERED: AMPICILLIN/SULBACTAM 3 GM in IV NORMAL SALINE 100ML 100 ML IV SCH (12:00)
--- NOTE | 2020-06-17 12:06 | PATHOLOGY ---
Note [facility] Accession Number: [id number] TESTS RESULT FLAG UNITS REF RANGE LAB Clinician Provided Cytology Information No. of containers..01 Urine Bottle Source: URINE DIAGNOSIS: URINE NEGATIVE FOR HIGH-GRADE UROTHELIAL CARCINOMA ([facility]). FEW UROTHELIAL CELLS ARE PRESENT. BENIGN UROTHELIAL CELLS ARE PRESENT. SCANT CELLULARITY. CELLULAR DEGENERATION IS PRESENT. Signed out by: Talon Styles MD, Pathologist NPI- [id number] Performed by: [facility] ([facility]) Gross description: 35ML, RED, 1 TP /LCS 06/14/2020 1901 Local FLAG LEGEND: L-Low Normal,H-High Normal,LL-Alert Low,HH-Alert High <-Panic Low,>-Panic High,A-Abnormal,AA-Critical Abnormal Performed at: [facility] [address] [place] [address] [address] [place] [address] Pelon Carcamo MD, [address] [place] [id number] Talon Styles MD, Specimen Comment: A courtesy copy of this report has been sent to [phone], [phone] Specimen Comment: [id number] Specimen Comment: Report sent to / DR MONTIEL Specimen Comment: A duplicate report has been generated due to demographic updates. Performed at: [address] [place] [address] [place] [address] [facility] [address], [place], [place] [id number] MD Pelon Carcamo MD Phone: [phone]
--- NOTE | 2020-06-17 12:55 | SNU/HH DC ---
DISCHARGE ORDERS DISCHARGE INFORMATION: CONDITION ON DISCHARGE: Stable CODE STATUS: Code Status: Full INTERMEDIATE: SNF STAY <30 DAYS: No HOSPICE: HOSPICE: No HOSPICE EVAL & TREAT: No LTAC: ADMIT TO LTAC: Yes POST DISCHARGE ORDERS: ACTIVITY ORDERS: Bedrest today DIET AFTER DISCHARGE: Cardiac TREATMENT/EQUIPMENT ORDERS: Physical Therapy For: Evalulation/Treatment Occupational Therapy For: Evaluation/Treatment DISCHARGE MEDICATIONS: Home Meds Reported Medications Levothyroxine Sodium (SYNTHROID) 175 Mcg Tablet, 1 TAB PO DAILY for hypothyroid, #30 TAB 5 Refills 06/11/20 LISA NG III DO Jun 17, 2020 12:55
[2020-06-17 15:00] VITALS: BP 103/64
--- NOTE | 2020-06-20 12:18 | DS ---
DATE OF DISCHARGE: 06/17/2020 ADMISSION DIAGNOSES: Sepsis and pneumonia, multiple wounds, rule out COVID-19, probable failure to thrive. DISCHARGE DIAGNOSES: Resolving sepsis, resolving pneumonia, probable failure to thrive. CONSULTS: Kosher Inspector, Wound Care team and Infectious Disease. HOSPITAL COURSE: The patient is a pleasant 64-year-old male who basically lives at home with his sister, but it seems that he was not getting enough care. He came in very disheveled and malnourished. He was very weak. He had wounds everywhere. We admitted the patient and gave him IV antibiotics and fluids, did some physical therapy and occupational therapy. Over the next several days, he did much better. He put on a little weight. He was given more energetic. We discharged him to [facility]. DISPOSITION: [facility]. ACTIVITY: As tolerated. DIET: Low sodium. MEDICATIONS: Please see the MRAD. TOTAL TIME: 31 minutes. LISA NG DO DR: VICKI/analisa JOB#: [id number] / [id number]
== END 2020-06-17 14:56 | DRG 853 ==
LOC: 1 WEST ICU 06-11 02:53 → 2 NORTH 06-11 21:57
PROVIDERS: ADMIT Internal Medicine; ATTEND Internal Medicine
PROC: 0JB70ZZ Excision of Back Subcutaneous Tissue and Fascia, Open Approach (ICD-10-PCS; 2020-06-14)
PROC: 0JB90ZZ Excision of Buttock Subcutaneous Tissue and Fascia, Open Approach (ICD-10-PCS; 2020-06-14)
PROC: 0HBRXZZ Excision of Toe Nail, External Approach (ICD-10-PCS; principal; 2020-06-15)
PROC: 0HBRXZZ Excision of Toe Nail, External Approach (ICD-10-PCS; 2020-06-15)
PROC: 0HBRXZZ Excision of Toe Nail, External Approach (ICD-10-PCS; 2020-06-15)
PROC: 0HBRXZZ Excision of Toe Nail, External Approach (ICD-10-PCS; 2020-06-15)
PROC: 0HBRXZZ Excision of Toe Nail, External Approach (ICD-10-PCS; 2020-06-15)
PROC: 0HBRXZZ Excision of Toe Nail, External Approach (ICD-10-PCS; 2020-06-15)
PROC: 0HBRXZZ Excision of Toe Nail, External Approach (ICD-10-PCS; 2020-06-15)
PROC: 0HBRXZZ Excision of Toe Nail, External Approach (ICD-10-PCS; 2020-06-15)
PROC: 0HBRXZZ Excision of Toe Nail, External Approach (ICD-10-PCS; 2020-06-15)
PROC: 0HBRXZZ Excision of Toe Nail, External Approach (ICD-10-PCS; 2020-06-15)
PROC: 05HY33Z Insertion of Infusion Device into Upper Vein, Percutaneous Approach (ICD-10-PCS; 2020-06-15)
DX: A41.50 Gram-negative sepsis, unspecified (principal); L89.213 Pressure ulcer of right hip, stage 3; E43 Unspecified severe protein-calorie malnutrition; J18.9 Pneumonia, unspecified organism; N39.0 Urinary tract infection, site not specified; B35.1 Tinea unguium; B37.2 Candidiasis of skin and nail; B96.89 Other specified bacterial agents as the cause of diseases classified elsewhere; D64.9 Anemia, unspecified; D69.6 Thrombocytopenia, unspecified; E03.9 Hypothyroidism, unspecified; I73.9 Peripheral vascular disease, unspecified; L60.0 Ingrowing nail; L60.2 Onychogryphosis; N48.5 Ulcer of penis; N48.89 Other specified disorders of penis; R32 Unspecified urinary incontinence; R62.7 Adult failure to thrive; R65.20 Severe sepsis without septic shock; Z20.828 Contact with and (suspected) exposure to other viral communicable diseases; Z68.28 Body mass index [BMI] 28.0-28.9, adult; B96.20 Unspecified Escherichia coli [E. coli] as the cause of diseases classified elsewhere; B95.2 Enterococcus as the cause of diseases classified elsewhere; B95.8 Unspecified staphylococcus as the cause of diseases classified elsewhere
CPT/HCPCS: 36415; 36573; 51798; 76770; 77001; 80048; 80053; 80061; 81001; 82550; 83735; 83880; 85025; 87040; 87077; 87086; 87426; 88112; A4314; C1751; C1892; J0295; J0878; J2185; J2248; J2270; J3490; J7030; J7060; 97530-GP; G0378; U0003-CS